=== PATIENT | female | born 1970 | race Caucasian/White ===

== ENCOUNTER 2019-12-31 08:06 | Emergency (ER) | payer BC, SELFPAY ==
--- NOTE | 2019-12-31 08:11 | ED.EYEPROB ---
HPI - Eye Problem General Chief complaint: Eye Problems Stated complaint: Dog scratch in eye Time Seen by Provider: 12/31/19 08:40 Source: patient and RN notes reviewed Mode of arrival: ambulatory Limitations: no limitations History of Present Illness HPI Narrative: 49-year-old female presents with concern for her dog scratching her right eye yesterday. She reports crusted drainage when she woke up this morning, the entire light sensitivity, discomfort, upper and lower lid swelling. She denies vision changes. Denies intervention. chief complaint: eye pain Related Data Home Medications Medication Instructions Recorded Confirmed aspirin 81 mg tablet,delayed 81 mg PO DAILY 01/18/19 12/31/19 release loratadine 10 mg tablet 10 mg PO DAILY 02/23/19 12/31/19 Allergies Allergy/AdvReac Type Severity Reaction Status Date / Time amoxicillin Allergy Severe IMMEDIATE Verified 12/31/19 08:16 ANAPHYLAXIS atorvastatin Allergy Unknown Muscle pain Verified 12/31/19 08:16 Penicillins Allergy Unknown Anaphylaxis Verified 12/31/19 08:16 Review of Systems Review of Systems: Narrative: CONSTITUTIONAL: Denies malaise, chills, sweats, or fever. EYES: Denies visual changes. Reports right eye light sensitivity, eyelid swelling, redness, or discharge. ENT: Denies rhinorrhea, congestion, sinus pain, otalgia or sore throat. CARDIOVASCULAR: Denies chest pain, palpitations RESPIRATORY: Denies cough or dyspnea. SKIN: Denies open skin, rash or itching. All systems reviewed & are unremarkable except as noted in HPI and below PMFSH Past Medical History Medical History (Updated 12/31/19 @ 08:53 by Alicia Martinez NP) Asthma Carpal tunnel syndrome Cholecystectomy planned HLD (hyperlipidemia) HTN (hypertension) RLS (restless legs syndrome) Thyroid disease Type 1 diabetes mellitus with hyperglycemia Surgical History Surgical History Delivery by section H/O tubal ligation Family History Family History Mother Family history of osteoporosis Patient's mother is in good health Cerebral aneurysm Sibling Hypertension Patient's sister is in good health Father Family history of cardiovascular disease Patient's father is in good health Other Family history of arthritis Family history of chronic obstructive pulmonary disease Family history of congestive heart failure Social History Social History (Updated 04/26/19 @ 15:11 by Nikky Paez MD) Smoking packs per day: 0.25 Smoking cigarettes per day: 5.0 Smoking status: Light tobacco smoker Tobacco type: cigarettes Alcohol intake: never 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 There is no relevant family history pertinent to the presenting complaint Exam Narrative: Exam Narrative: GENERAL: Well-appearing, well-nourished, and in no acute distress. HEAD: Normocephalic, atraumatic. EYES: PERRLA and EOMI. No nystagmus. Left eye sclera conjunctivae clear. Right eye sclera injected, mild upper and lower lid edema. Corneal abrasion noted on Benitez lamp exam, see note ENT: Nares clear. Mucous membranes moist. NECK: Supple. CHEST: No respiratory distress. Speaks in full sentences. HEART: Regular rate and rhythm. SKIN: Warm, dry, no open skin NEURO: Alert and oriented x3. PSYCH: Normal mood and affect Course Course Emergency Course: Patient is aware of diagnosis, understands and agrees to treatment plan. Anticipatory guidance given. Patient agrees to follow-up as directed and is aware of reasons to seek care at the emergency department. Portions of this record may have been created with voice recognition software Vital Signs Vital signs: Vital Signs Temperatu
[2019-12-31 08:23] VITALS: BP 158/97; PULSE 102; RESP 16; TEMP 36.7; O2SAT 99
== END 2019-12-31 08:56 | disposition home or self-care (01) ==
PROVIDERS: Emergency Provider Nurse Practitioner; PCP Internal Medicine
DX: S05.01XA Injury of conjunctiva and corneal abrasion without foreign body, right eye, initial encounter (principal); W54.8XXA Other contact with dog, initial encounter; F17.210 Nicotine dependence, cigarettes, uncomplicated; E78.5 Hyperlipidemia, unspecified; I10 Essential (primary) hypertension; G25.81 Restless legs syndrome; E10.9 Type 1 diabetes mellitus without complications; Z79.82 Long term (current) use of aspirin
CPT/HCPCS: 99213; A9270; G0463

== ENCOUNTER 2020-01-09 11:58 | Outpatient (CLI) | payer BC, SELFPAY ==
--- NOTE | ~2020-01-09 | XR_ITS ---
EXAMINATION: HAND-MIL ARTHRITIS 3+VIEWS DATE: 01/09/2020 12:20 INDICATION: Bilateral hand pain TECHNIQUE: Posteroanterior, lateral, and oblique views of the left and of the right hands as well as a ballcatchers view of both hands were obtained. COMPARISON: Right wrist radiograph dated 09/09/2017 FINDINGS: Bone alignment is normal at both hands and wrists. No fracture. Tiny heterotopic ossicle versus degen erative loose body near the tip of the right ulnar styloid process. Mild to moderate osteoarthritis a t the right third metacarpophalangeal joint. Mild osteoarthritis at the left third metacarpophalangea l joint, bilateral first interphalangeal joints and right second distal interphalangeal joint. Minima l osteoarthritis at several of the remaining predominantly distal interphalangeal joints. No erosions to suggest an inflammatory arthritis. Soft tissues are unremarkable. IMPRESSION: 1. Generally mild polyarticular osteoarthritis. The prominence at the third metacarpophalangeal joint s is somewhat atypical but can be seen in the setting of secondary osteoarthritis related to calcium pyrophosphate deposition (CPPD) disease. Reviewed, dictated and finalized at location A. RTMENT HEAD IMPRESSION: 1. Generally mild polyarticular osteoarthritis. The prominence at the third met acarpophalangeal joints is somewhat atypical but can be seen in the setting of secondary osteoarthritis related to calcium pyrophosphate deposition (CPPD) dis ease.
== END 2020-01-09 11:59 | disposition home or self-care (01) ==
PROVIDERS: PCP Internal Medicine; Visit Provider Nurse Practitioner
DX: M19.041 Primary osteoarthritis, right hand (principal); M19.042 Primary osteoarthritis, left hand
CPT/HCPCS: 73130

== ENCOUNTER 2020-12-20 09:29 | Outpatient (CLI) | payer BC, SELFPAY ==
--- NOTE | ~2020-12-20 | MM_ITS ---
EXAMINATION: MM screening tc BI w abigail HISTORY: Screening mammogram TECHNIQUE: Craniocaudal and mediolateral oblique 3-D tomosynthesis images were obtained and synthetic 2-D images were generated. CAD analysis was submitted and interpreted. COMPARISON: 09/08/2018, 10/03/2013 bilateral screening mammogram examinations BREAST PARENCHYMAL COMPOSITION: The breasts are heterogeneously dense, which may obscure small masses . FINDINGS: There is no evidence of suspicious mass, calcification, or architectural distortion to sugg est malignancy in either breast. There has been no suspicious interval change. IMPRESSION: 1. No mammographic evidence of malignancy. 2. Recommend routine screening mammography in one year. BI-RADS Category 1: Negative Reviewed, dictated and finalized at location A. MAKER
== END 2020-12-20 09:30 | disposition home or self-care (01) ==
LOC: ANHIMG 09:30
PROVIDERS: PCP Internal Medicine; Visit Provider Obstetrics & Gynecology
DX: Z12.31 Encounter for screening mammogram for malignant neoplasm of breast (principal)
CPT/HCPCS: 77063; 77067

== ENCOUNTER 2022-01-05 17:49 | Emergency (ER) | payer BC, SELFPAY ==
[2022-01-05 18:28] VITALS: BP 159/61; PULSE 119; RESP 18; TEMP 38.7; O2SAT 97
--- NOTE | 2022-01-05 20:37 | PC.NURSE ---
pt ambulatory to front end mechanic. verbalized that she cant wait any longer and is leaving.
== END 2022-01-05 21:06 | disposition left against medical advice (07) ==
LOC: ANHED 21:04
PROVIDERS: PCP Internal Medicine
DX: R03.0 Elevated blood-pressure reading, without diagnosis of hypertension (principal)
CPT/HCPCS: 99199

== ENCOUNTER 2022-01-06 12:24 | Outpatient (CLI) | payer BC, SELFPAY ==
--- NOTE | ~2022-01-06 | XR_ITS ---
XR chest 2V DATE: 01/06/2022 12:39 INDICATION: Cough TECHNIQUE: PA and lateral views COMPARISON: 09/18/2018 2 view chest FINDINGS: Normal heart size. No hilar or mediastinal enlargement. No pulmonary infiltrate or consolid ation, pleural effusion or pulmonary vascular congestion or pneumothorax. The lungs are mildly hyperi nflated. Osteopenia. Mild thoracolumbar dextroscoliosis. Status post cholecystectomy. IMPRESSION: No active cardiopulmonary disease Reviewed, dictated and finalized at location B. ALING FURNACE TENDER
== END 2022-01-06 12:25 | disposition home or self-care (01) ==
PROVIDERS: PCP Internal Medicine; Visit Provider Nurse Practitioner
DX: R05.9 Cough, unspecified (principal)
CPT/HCPCS: 71046

== ENCOUNTER 2022-01-07 16:05 | Emergency (ER) | payer BC, SELFPAY ==
[2022-01-07 16:19] VITALS: BP 144/75; PULSE 100; RESP 16; TEMP 36.5; O2SAT 98
--- NOTE | 2022-01-07 18:00 | ED.URI ---
HPI - URI/Sore Throat General Chief Complaint: Upper Respiratory Infection Stated Complaint: sore throat/ear pain Time Seen by Provider: 01/07/22 18:00 Source: patient, RN notes reviewed and old records reviewed Mode of arrival: ambulatory Limitations: no limitations History of Present Illness HPI Narrative: 51 year old female who presents to [facility] care with complaints of sore throat and right ear pain and hoarseness for the past 2 days, Patient reports that she had a chest xray done yesterday which was negative and she was diagnosed iwith influenza A at PCP on Wednesday. Patient reports that her right ear pain is 7/10, and throat is 9/10.Patient has been taking Ibuprofen for her discomfort. MD elicited complaint: cough, sore throat, rhinorrhea, nasal congestion and other (EAR PAIN RIGHT) Pertinent past history: other (diagnosed with flu on Wednesday) Onset (ago): day(s) (2) Pain scale (0-10): 9 Treatments prior to arrival: ibuprofen Related Data Home Medications Medication Instructions Recorded Confirmed aspirin 81 mg tablet,delayed 81 mg PO DAILY 01/18/19 12/18/21 release (Adult Aspirin Regimen) loratadine 10 mg tablet (Claritin) 10 mg PO DAILY 02/23/19 12/18/21 blood-glucose sensor (Guardian 12/16/21 12/18/21 Sensor 3 device) Allergies Allergy/AdvReac Type Severity Reaction Status Date / Time amoxicillin Allergy Severe IMMEDIATE Verified 01/07/22 16:27 ANAPHYLAXIS Penicillins Allergy Unknown Anaphylaxis Verified 01/07/22 16:27 Review of Systems Review of Systems: CONSTITUTIONAL:Reports malaise, chills, sweats, or fever. EYES: Denies visual changes, redness, or discharge. ENT: Reports rhinorrhea, congestion, sinus pain,right otalgia and sore throat. CARDIOVASCULAR: Denies chest pain, palpitations, or edema. RESPIRATORY: Reports cough.? Denies dyspnea. GASTROINTESTINAL: Denies abdominal pain, nausea, vomiting, diarrhea SKIN: Denies rash or itching. MUSCULOSKELETAL: reports myalgia. NEUROLOGIC: Denies headache. All systems reviewed & are unremarkable except as noted in HPI and below PMFSH Past Medical History Medical History 70 percent neuromuscular blockade measured by train of four peripheral nerve stimulation monitoring Asthma Carpal tunnel syndrome Depression H/O calcium pyrophosphate deposition disease (CPPD) Hip pain, left Hirsutism HLD (hyperlipidemia) HTN (hypertension) Hypothyroidism Menopause Neuropathy RLS (restless legs syndrome) Type 1 diabetes mellitus with hyperglycemia Surgical History Surgical History Delivery by section H/O tubal ligation Family History Family History Mother , July 14 2020 Family history of osteoporosis Patient's mother is in good health Cerebral aneurysm Sibling Hypertension Patient's sister is in good health Father Family history of cardiovascular disease Tongue cancer Other Family history of arthritis Family history of chronic obstructive pulmonary disease Family history of congestive heart failure Social History Social History (Updated 12/18/21 @ 14:15 by Alis Edmondson CMA) Social History: caffeine- 6 cups daily Smoking packs per day: 0.5 Smoking cigarettes per day: 10.0 Years smoked: 20 Smoking pack-years: 10.00 Smoking status: Current every day smoker Tobacco type: cigarettes Alcohol intake: never Substance use: never Lack of Transportation: No Lack of Food: Never True Current Housing: I Have Housing Concerned About Future Housing: No Difficulty Paying Gas/Electric Bills: No Difficulty Paying for Meds: No Currently Unemployed: No Education: Don't Know Difficulty w/ Childcare or Family Care: No 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
== END 2022-01-07 18:14 | disposition home or self-care (01) ==
PROVIDERS: Emergency Provider Registered Nurse; PCP Internal Medicine
DX: J10.1 Influenza due to other identified influenza virus with other respiratory manifestations (principal); H60.91 Unspecified otitis externa, right ear; F17.210 Nicotine dependence, cigarettes, uncomplicated; J45.909 Unspecified asthma, uncomplicated; E78.5 Hyperlipidemia, unspecified; I10 Essential (primary) hypertension; E03.9 Hypothyroidism, unspecified; G25.81 Restless legs syndrome; E10.9 Type 1 diabetes mellitus without complications; Z79.82 Long term (current) use of aspirin
CPT/HCPCS: 87081; 87880; 99213; G0463

== ENCOUNTER 2022-04-15 15:41 | Outpatient (CLI) | payer BC, SELFPAY ==
[2022-04-15 17:20] LABS: Free T4 Free Thyroxine 1.55 ng/mL (0.78-2.19); Vitamin D 25 Hydroxy 36.4 ng/mL
[2022-04-15 17:38] LABS: Creatinine Urine 21.3 mg/dL
[2022-04-15 17:39] LABS: MALB Creatinine Ratio 29.6 mg/g (0-30); Microalbumin Urine Random 6.3 mg/L (0-16.7)
[2022-04-15 20:44] LABS: Anion Gap 7 mmol/L (8-16); Blood Urea Nitrogen 14 mg/dL (7-17); Calcium 8.6 mg/dL (8.4-10.2); Carbon Dioxide 24 mmol/L (22-30); Chloride 107 mmol/L (98-107); Estimated Glomerular Filt Rate > 60; Glucose 139 mg/dL (65-110); Magnesium 1.7 mg/dL (1.6-2.3); Potassium 3.8 mmol/L (3.4-5.0); Sodium 138 mmol/L (137-145)
[2022-04-15 20:55] LABS: LDL Cholesterol Direct 66 mg/dL
[2022-04-15 21:15] LABS: Thyroid Stimulating Hormone 0.419 uIU/mL (0.465-4.680)
== END 2022-04-15 15:42 | disposition home or self-care (01) ==
LOC: ANHWCLAB 15:43
PROVIDERS: Visit Provider Internal Medicine Endocrinology, Diabetes & Metabolism
DX: E03.9 Hypothyroidism, unspecified (principal); E10.65 Type 1 diabetes mellitus with hyperglycemia; E78.5 Hyperlipidemia, unspecified; Z71.3 Dietary counseling and surveillance; R79.89 Other specified abnormal findings of blood chemistry
CPT/HCPCS: 36415; 80048; 82043; 82306; 83721; 83735; 84439; 84443

== ENCOUNTER 2023-04-09 08:27 | Outpatient (CLI) | payer BC, SELFPAY ==
--- NOTE | ~2023-04-09 | XR_ITS ---
Left Knee Technique: AP, lateral, and sunrise views were obtained. Clinical History: Pain Findings: No fracture or dislocation is seen. Osseous alignment is anatomic. Minimal patellar spurrin g noted. Soft tissues are unremarkable. No joint effusion is seen. Impression: Minimal degenerative spurring. Reviewed, dictated and finalized at [facility]. STILE ATTENDANT Impression: Minimal degenerative spurring.
== END 2023-04-09 08:28 ==
PROVIDERS: PCP Nurse Practitioner; Visit Provider Nurse Practitioner
DX: M25.562 Pain in left knee (principal)
CPT/HCPCS: 73564

== ENCOUNTER 2023-05-19 15:18 | Outpatient (CLI) | payer BC, SELFPAY ==
--- NOTE | ~2023-05-19 | MM_ITS ---
EXAMINATION: MM screening tc BI w abigail HISTORY: Screening mammogram TECHNIQUE: Craniocaudal and mediolateral oblique 3-D tomosynthesis images were obtained and synthetic 2-D images were generated. CAD analysis was submitted and interpreted. COMPARISON: 12/20/2020, 09/08/2018 bilateral screening mammogram examinations BREAST PARENCHYMAL COMPOSITION: The breasts are heterogeneously dense, which may obscure small masses . FINDINGS: There is no evidence of suspicious mass, calcification, or architectural distortion to sugg est malignancy in either breast. There has been no suspicious interval change. IMPRESSION: 1. No mammographic evidence of malignancy. 2. Recommend routine screening mammography in one year. BI-RADS Category 1: Negative Reviewed, dictated and finalized at location A.
== END 2023-05-19 15:19 | disposition home or self-care (01) ==
PROVIDERS: PCP Nurse Practitioner; Visit Provider Obstetrics & Gynecology
DX: Z12.31 Encounter for screening mammogram for malignant neoplasm of breast (principal)
CPT/HCPCS: 77063; 77067

== ENCOUNTER 2025-01-08 13:36 | Inpatient (IN) | payer BC, SELFPAY ==
--- NOTE | ~2025-01-08 | XR_ITS ---
EXAMINATION: XR surgery orthopedic DATE: 01/09/2025 11:17 INDICATION: Intraoperative evaluation during right hip intertrochanteric nailing TECHNIQUE: 4 fluoroscopic images of the right hip and proximal femur were obtained procedure performed by Dr. Abernathy. Radiologist was not present for the imaging or procedure. The amount of fluoroscopy time used during this procedure was 0.6 minutes. The dose area product was 1.299 Gycm^2. COMPARISON: Radiographs dated 01/08/2025 FINDINGS: Images demonstrate open reduction and internal fixation of the intertrochanteric fracture of the proximal with antegrade intramedullary jaci with femoral neck dynamic compression screw and distal interlocking screw fixation. Alignment remains near-anatomic. No new fractures identified. Normal right hip joint space. Expected small amount of postoperative lucent soft tissue gas in the surrounding soft tissues. IMPRESSION: 1. Near-anatomic alignment post internal fixation of an intertrochanteric fracture of the proximal right femur. See procedure note for further detail.. Reviewed, dictated and finalized at location A. TIONAL REHABILITATION TECHNICIAN IMPRESSION: 1. Near-anatomic alignment post internal fixation of an intertrochanteric fract ure of the proximal right femur. See procedure note for further detail..
--- NOTE | ~2025-01-08 | XR_ITS ---
EXAMINATION: XR hip RT 2V w AP pelvis, 01/08/2025 15:17 LOG MANAGER HISTORY: GLF, pain COMPARISON: No comparisons available. Findings: Nondisplaced right intertrochanteric fracture. No dislocation. No significant degenerative changes. Soft tissue swelling. Impression: Right intertrochanteric fracture Reviewed, dictated and finalized at location P. MANAGER Impression: Right intertrochanteric fracture
[2025-01-08 13:48] VITALS: BP 148/54; PULSE 91; RESP 16; TEMP 36.6; O2SAT 97
[2025-01-08] MEDS: MORPHINE SULFATE (*CRX) 4 MG/ML INJ 2 MG IV PUSH ×3 (14:24→20:02)
--- OUTSIDE RECORDS SUMMARY | 2025-01-08 15:17 | XMS_ITS | Clinical Summary ---
Author Organization [facility] Address [address] [place] [address] Care Team Providers Care Analytical Chemist Name Role Phone Brandon Begum DO Primary Care Provider [phone] Source Comments [facility],non-owned Affiliates and Associated Physician Practices is amultiple site organization consisting of ambulatory clinics and hospital sitesin [place], [place], [place] and [place]. This disclosure is being madepursuant to the Care Everywhere program and may not contain all information available regarding this patient. Last updated 17.[facility] Allergies Active Allergy Reactions Criticality Noted Date Comments Penicillins 02/28/2016 Medications * Be aware that medications may not be up to date on this document. Alwaysverify current medications with the patient. insulin glulisine (APIDRA) vial Inject subcutaneously 2 times daily,before breakfast and supper Active insulin glargine (LANTUS) vial Inject subcutaneously at bedtime Active levothyroxine (SYNTHROID) 175 MCG tablet Take 175 mcg by mouth daily before breakfast Active aspirin EC (ECOTRIN) 81 MG tablet Active fluticasone propionate (FLONASE) 50 MCG/ACT nasal spray Active omeprazole (PRILOSEC) 20 MG capsule Active blood glucose (PRECISION QID TEST) test strip Use to test blood sugars 4 times a day (glucocard expression meter) Active amLODIPine (NORVASC) 10 MG tablet Take 10 mg by mouth once daily Active atorvastatin (LIPITOR) 10 MG tablet Take 10 mg by mouth at bedtime Active cetirizine (ZYRTEC ALLERGY) 10 MG gel capsule Take 10 mg by mouth once daily Active ofloxacin (FLOXIN) 0.3 % otic solution Instill 5 (five) drops into right ear 2 times daily 5 mL Active Social History Tobacco Use Types Packs/Day Years Used Date Smoking Tobacco: Every Day Cigarettes Smokeless Tobacco: Never Tobacco Cessation:Ready to Q uit: No; Counseling Given: Yes PHQ-2 Answer Date Recorded PHQ2 TOTAL SCORE 0 08/05/2020 Comments No Sex and Gender Information Value Date Recorded Sex Assigned at Not on file Legal Sex Female 5:37 AM BUSINESS 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 Gender Identity Not on file Sexual Orientation Not on file Last Filed Vital Signs Vital Sign Reading Time Taken Comments Blood Pressure 120/64 08/05/2020 3:39 PM CDT Pulse 91 08/05/2020 3:39 PM CDT Temperature 36.6 C (97.9 F) 08/05/2020 3:39 PM CDT Respiratory Rate 18 08/05/2020 3:39 PM CDT Oxygen Saturation 97% 08/05/2020 3:39 PM CDT Inhaled Oxygen Concentration - - Weight 68.9 kg (152 lb) 08/05/2020 3:39 PM CDT Height 157.5 cm (5' 2) 08/05/2020 3:39 PM CDT Body Mass Index 27.8 08/05/2020 3:39 PM CDT Plan of Treatment Health Maintenance Due Date Last Done Comments COLOGUARD (AGES 45-75) - COL ON CA SCREENING 1970 COLON MONITORING 1970 COLONOSCOPY - COLON CA SCREENING 1970 CT COLONOGRAPHY - COLON CA SCREENING 1970 Colorectal Cancer Screening 1970 FIT - COLON CA SCREENING 1970 FLEX SIG - COLON CA SCREENING 1970 MAMMOGRAM 1970 HIV SCREENING 1985 HEPATITIS C SCREENING 07/07/1988 DTAP/TDAP/TD VACCINES (1 - Tdap) 1989 HEPATITIS B VACCINE (1 of 3 - 19+ 3-dose series) 1989 PNEUMOCOCCAL VACCINE 50+ (1 of 2 - PCV) 1989 Cervical Cancer Screening 07/13/1991 PAP SMEAR 07/13/1991 PAP with HPV 2000 ZOSTER VACCINE (1 of 2) 2020 SCREENING FOR DIABETES 08/05/2020 DEPRESSION SCREENING 02/09/2024 COVID-19 VACCINE ( - 2024-2 6 season) 2024 INFLUENZA VACCINE (#1) 2024 HIB VACCINE Aged Out No longer eligi ble based on patient's age to complete this topic HPV VACCINE Aged Out No longer eligi ble based on patient's age to complete this topic MENINGOCOCCAL (Group B) VACC INE SHARED DECISION-MAKING Aged Out No longer eligibl e based on patient's age to complete this topic MENINGOCOCCAL GROUPS A/C/Y/W VACCINE Aged Out No longer eligible b ased on patient's age to complete this topic Insurance [facility] Care Teams Analytical Chemist Relationship Specialty Start Date End Date Brandon Begum DO PCP - General Internal Medicine 02/28/16
--- OUTSIDE RECORDS SUMMARY | 2025-01-08 15:17 | XMS_ITS | Clinical Summary ---
Author Organization [facility] Address Formerly [address] [place] [address] Care Team Providers Care Ruby On Rails Engineer Name Role Phone None, Provider MD Primary Care Provider Unavaila ble Allergies Active Allergy Reactions Criticality Noted Date Comments Penicillins Shortness of Breath High 07/27/2024 Medications ezetimibe (ZETIA) 10 MG tablet Take 1 tablet (10 mg total) by mouth daily. Active hydroxychloroq uine (PLAQUENIL) 200 MG tablet Take 1 tablet (200 mg total) by mouth daily. Active lisinopril (PRINIVIL) 40 MG tablet Take 1 tablet (40 mg total) by mouth daily. Active levothyroxine (SYNTHROID) 175 MCG tablet Take 1 tablet (175 mcg total) by mouth every morning. Active folic acid (FOLVITE) 1 MG tablet Take 1 tablet (1 mg total) by mouth daily. Active methotrexate (TREXALL) 2.5 MG tablet Take 8 tablets (20 mg total) by mouth once a week. On Wednesday Active Apremilast (OTEZLA) 30 MG Tab Take 1 tablet by mouth 2 (two) times a day. Active celecoxib (CELEBREX) 200 MG capsule Take 1 capsule (200 mg total) by mouth 2 (two) times daily. Active aspirin EC 81 MG tablet Take 1 tablet (81 mg total) by mouth daily. Active amLODIPine (NORVASC) 10 MG tablet Take 1 tablet (10 mg total) by mouth nightly. Active vitamin D3, cholecalcifero l, 125 mcg capsule Take 1 capsule (125 mcg total) by mouth nightly. Active probiotic (FLORAJEN3) Cap capsule Take 1 capsule by mouth nightly. Active lansoprazole (PREVACID) 15 MG capsule Take 1 capsule (15 mg total) by mouth daily. Active insulin lispro, 1 Unit Dial, (HUMALOG) 100 UNIT/ML injection (PEN) Inject into the skin see administration instructions. Active insulin glargine (LANTUS) 100 UNIT/ML injection (PEN) Inject 6 Units into the skin 2 (two) times a day. Active HYDROcodone-ac etaminophen (NORCO) 7.5-325 MG tabletIndicati ons:Acute Pain < 7 Day Supply Take 1 tablet by mouth every 6 (six) hours as needed. Indications: Acute Pain < 7 Day Supply 15 tablet Active Social History Tobacco Use Types Packs/Day Years Used Date Smoking Tobacco: Every Day Cigarettes Smokeless Tobacco: Never Tobacco Cessation:Ready to Q uit: Not Asked; Counseling Given: Not Answered Alcohol Use Standard Drinks/Week Comments Never 0 (1 standard drink = 0.6 oz pur e alcohol) Comments No Sex and Gender Information Value Date Recorded Sex Assigned at Not on file Legal Sex Female 8:08 PM CDT Gender Identity Not on file Sexual Orientation Not on file Last Filed Vital Signs Vital Sign Reading Time Taken Comments Blood Pressure 139/68 08/03/2024 11:20 AM CDT Pulse 72 08/03/2024 11:20 AM CDT Temperature 37 C (98.6 F) 08/03/2024 11:20 AM CDT Respiratory Rate 16 08/03/2024 11:2 0 AM CDT Oxygen Saturation 97% 08/03/2024 11: 20 AM CDT Inhaled Oxygen Concentration - - Weight 59.4 kg (130 lb 15.3 oz) 08/03/2024 7:30 AM CDT Height 157.5 cm (5' 2) 08/03/2024 7:30 AM CDT Body Mass Index 23.95 08/03/2024 7:30 AM CDT Plan of Treatment Health Maintenance Due Date Last Done Comments Colorectal Cancer Screening Colonoscopy (10 Years) 1970 Annual Physical 1973 Hepatitis C 1988 Hepatitis B Vaccines (1 of 3 - 19+ 3-dose series) 1989 Cervical Cancer Screening Pap with HPV Testing (Age 30 to 64) Every 5 Years 2000 Mammogram Screening 2010 Zoster Vaccines (1 of 2) 2020 Pneumococcal Vaccine: 50+ Years (3 of 3 - PCV20 or PCV21) 11/11/2023 11/10/2018, 10/18/2015 COVID-19 Vaccine (3 - season) 2024 02/11/2021, 04/12/2020 Influenza Adult (#1) 2024 12/11/2023, 12/12/2022, 02/19/2022, Additional history exists Cervical Cancer Screening Pap Smear (Age 30 to 64) Every 3 Years 03/16/2027 03/16/2024 Cervical Cancer Screening with HPV 03/16/2027 DTaP, Tdap and Td Vaccines (2 - Td or Tdap) 10/09/2031 10/08/2021 Hepatitis A Vaccines Aged Out No long er eligible based on patient's age to complete this topic Meningococcal B Vaccine Aged Out No l onger eligible based on patient's age to complete this topic Meningococcal Vaccine Aged Out No rome aditya eligible based on patient's age to complete this topic RSV Immunizations Under 20 Months Aged Out No longer eligible based on patient's age to complete this topic Insurance Care Teams Ruby On Rails Engineer Relationship Specialty Start Date End Date None, Provider, PCP - General UNKNOWN PHYSICIAN SPECIALTY 07/31/24
--- OUTSIDE RECORDS SUMMARY | 2025-01-08 15:17 | XMS_ITS | Clinical Summary ---
Author Organization [facility] Address [address] [place] [address] Care Team Providers Care Automatic Pinsetter Adjuster Name Role Phone Brandon Begum DO Primary Care Provider [phone] Brandon Begum DO Unavailable [phone] Kolby Braga HYDRAULIC DESIGN ENGINEER Unavailable [phone] Allergies Active Allergy Reactions Criticality Noted Date Comments Atorvastatin Joint pain High 01/28/2023 Suspected in drug-induced lupus Penicillins Anaphylaxis,Chest tightness,Chills,Flushin g (skin),Hives,Palpitation s,Rash,Redness,Shortness of breath High 12/13/2014 Medications aspirin (ASPIR-81) 81 mg tablet Active clobetasol (TEMOVATE) 0.05 % cream 016 Active insulin glargine (LANTUS) 100 unit/mL injectionIndicat ions:type 1 diabetes mellitus Inject 8 Units under the skin every 12 (twelve) hours Active levothyroxine (LEVO-T) 175 mcg tablet Active omeprazole (PriLOSEC) 40 mg capsuleIndicatio ns:GERD Take 1 capsule (40 mg total) by mouth daily Active CETIRIZINE HCL (ZYRTEC ORAL) Active blood glucose diagnostic strip Use to test blood sugars 4 times a day (glucocard expression meter) Active PROAIR HFA 90 mcg/actuation inhaler 018 Active HUMALOG U-100 INSULIN 100 unit/mL injection daily as needed 018 Active insulin syringe-needle U-100 1/2 mL 31 gauge x 15/64 syringe 018 Active INSULIN SYRINGE 0.5 mL 29 gauge x 1/2 syringe 018 Active amLODIPine (NORVASC) 10 mg tablet Take 1 tablet (10 mg total) by mouth daily 023 Active lisinopriL (PRINIVIL,ZESTRI L) 40 mg tablet Take 1 tablet (40 mg total) by mouth daily 023 Active Baqsimi 3 mg/actuation spray,non-aeroso l SPRAY THE CONTENTS OF 1 DEVICE INTRANASALLY ONCE; MAY REPEAT WITH OTHER DEVICE IN 15 MINUTES IF NO RESPONSE 023 Active Dexcom G6 Sensor device 023 Active estradioL (ESTRACE) 1 mg tablet Take 1 tablet (1 mg total) by mouth daily 024 Active progesterone (PROMETRIUM) 100 mg capsule Take 1 capsule (100 mg total) by mouth daily 024 Active blood-glucose sensor (Dexcom G7 Sensor) device Active HYDROcodone-acet aminophen (NORCO) 7.5-325 mg per tablet Take 1 tablet by mouth every 6 (six) hours as needed 025 Active colestipoL (COLESTID) 1 gram tabletIndication s:Diarrhea due to malabsorption Take 1 tablet (1 g total) by mouth 2 (two) times a day 60 tablet 5 025 2024 Active ezetimibe (ZETIA) 10 mg tablet 025 Active pravastatin (PRAVACHOL) 10 mg tablet TAKE 1/2 (ONE-HALF) TABLET BY MOUTH ONCE DAILY AT BEDTIME 025 Active diclofenac sodium (VOLTAREN) 1 % gel Apply 2 g topically 3 (three) times a day Apply to arthritis joints PRN 50 g 2 025 Active folic acid (FOLVITE) 1 mg tablet Take 1 tablet by mouth once daily 90 tablet 1 025 Active hydroxychloroqui ne (PLAQUENIL) 200 mg tabletIndication s:Positive STEPHENIE (antinuclear antibody) TAKE 1 & 1/2 (ONE & ONE-HALF) TABLETS BY MOUTH ONCE DAILY 135 tablet 025 Active celecoxib (CeleBREX) 200 mg capsule TAKE 1 CAPSULE BY MOUTH TWICE DAILY NEEDED FOR PAIN 30 capsule Active apremilast (Otezla) 30 mg tabletIndication s:Psoriasis Take 1 tablet (30 mg total) by mouth 2 (two) times a day 180 tablet 1 Active methotrexate 2.5 mg tabletIndication s:autoimmune disease Take 8 tablets (20 mg total) by mouth once a week 32 tablet 3 025 2025 Active celecoxib (CeleBREX) 200 mg capsule Take 1 capsule (200 mg total) by mouth 2 (two) times a day as needed for pain 30 capsule 3 025 2024 Discontinued Otezla 30 mg tabletIndication s:Psoriasis TAKE 1 TABLET BY MOUTH 2 TIMES A DAY 180 tablet 1 025 2024 Discontinued(R luis albertoer) ixekizumab (Taltz Autoinjector) auto-injectorInd ications:Psoriat ic Arthritis Inject 2 mL (160 mg total) under the skin once for 1 dose 2 mL 025 2024 Discontinued ixekizumab (Taltz Autoinjector) auto-injectorInd ications:Psoriat ic Arthritis Inject 1 mL (80 mg total) under the skin every 4 (four) weeks 3 mL 1 025 2024 Discontinued Active Problems Problem Noted Date Diagnosed Date Drug-induced systemic lupus erythematosus 2023 Tobacco use 06/24/2023 Arthralgia 01/07/2023 Ventricular bigeminy 01/07/2023 Other fatigue 01/07/2023 Positive STEPHENIE (antinuclear antibody) 01/07/2023 Rash and nonspecific skin eruption 01/07/2023 Type 1 diabetes mellitus with hypoglycemia and w ithout coma 11/05/2016 Assessment & Plan (11/05/2016 2:46 PM CDT): Prevention and treatment of hypoglycemia were discussed Pa has glucagon emergency kit at home and family knows how to use it. Options of an insulin pump and DEXCOM continuous glucose monitoring discussed. Urinary tract infection 10/09/2014 Type 1 diabetes mellitus with hyperglycemia 06/08 Overview (05/15/2016): DMI WO CMP UNCNTRLD Assessment & Plan (12/04/2016 8:33 AM CDT): T1DM with poor hypoglycemia awareness preventing optimal glycemic control. Reviewed concept of CGM and insulin pump therapy. Would likely be able to achieve improved control with confidence of having CGM data available. Would additionally be able to be more precise with basal rates. Provided with information on CGM and pump therapy. Will contact pump reps. In meantime she is to count carbs in preparation. BG goals reviewed. Provided with education material and resources for carb counting and label reading. More than 50% of time spent on DM and pump/CGM education = 25 minutes of 40 minutes. Assessment & Plan (11/05/2016 2:46 PM CDT): .Hba1c was 8.8 today, indicating suboptimal DM control 1800 calorie, consistent carb diet recommended 30 min daily exercise, combining both aerobic and resistance exercise is strongly recommended and needed as part of diabetes management plan. The need to monitor blood glucose before meals and bedtime was discussed. Take prandial insulin before meals based on carb intake and blood glucose readings. : Take one unit per 15 grams of carbs ( trying not to eat more than 45-60 grams per meal ) Add one unit per ever 50 BG over 150. Lower Lantus to 6 units every 12 hours , am and bedtime Fax log sugars sheets every week Encounters Date Type Department Care Team Description 12/27/2024 Telephone [facility] [address] [place] [phone] Michelle Cardona RPh Prior Auth 12/26/2024 3:36 PM ELECTRICAL MECHANIC - 12/26/2024 11:59 PM ELECTRICAL MECHANIC Hospital Encounter [facility] [address] [place] [address] Psoriasis Discharge Disposition: Discharge to home or self care 12/26/2024 3:30 PM ELECTRICAL MECHANIC Lab [facility] Medicine Infectious Diseases [address] [place] [phone] 12/26/2024 3:00 PM ELECTRICAL MECHANIC Office Visit [facility] Medicine Rheumatology [address] [place] [phone] Prem Chapman MD Psoriatic arthritis (HCC) (Primary Dx); Psoriasis; Positive STEPHENIE (antinuclear antibody); Trigger index finger of right hand; High risk medication use; Tobacco use 10/15/2024 Telephone [facility] [address] [place] [address] Jacqui Jenkins RPh 10/13/2024 Orders Only [facility] Medicine Rheumatology [address] [place] [address] [place] [address] Prem Chapman MD from Last 3 Months Surgical History Surgery Date Site/Laterality Comments SECTION section TUBAL LIGATION 2005 Bilateral tubal ligation CARPAL TUNNEL RELEASE Carpal tunnel release CHOLECYSTECTOMY SINUS SURGERY 07/09/2024 - 08/07/2024 SECTION 1997 Medical History Medical History Date Comments Diabetes mellitus Diabetes Diabetes mellitus type I GERD (gastroesophageal reflux disease) 08/24 Thyroid disease 1997 Family History Medical History Relation Name Comments Heart attack Father Dad Heart disease Father Dad Hypertension Mother Mom Inflammatory bowel disease Mother Mom Stroke Mother Mom Cancer Mother's Brother Ketan Cancer Mother's Sister 1 Abdoul Diabetes Mother's Sister 2 Nancy Other Other No family histo ry of Diabetes mellitus; Allergy (severe) Son Cornelius Asthma Son Cornelius Relation Name Status Comments Father Dad Alive Mother Mom Mother's Brother Ketan Alive Mother's Sister 1 Abdoul Alive Mother's Sister 2 Nancy Alive Other Son Cornelius Alive Social History Tobacco Use Types Packs/Day Years Used Date Smoking Tobacco: Every Day Cigarettes Smokeless Tobacco: Current Tobacco Cessation:Ready to Q uit: Yes; Counseling Given: No Alcohol Use Standard Drinks/Week Comments No 0 (1 standard drink = 0.6 oz pur e alcohol) Social Connection and Isolation Panel Answer Date Recorded In a typical week, how many times do you talk on the phone with family, friends, or neighbors? More than three times a week 07/07/2023 How often do you get togethe r with friends or relatives? More than three times a week 07/07/2023 How often do you attend [facility] or restoration services? Never 07/07/2023 Do you belong to any clubs o r organizations such as oriental orthodox groups, unions, fraternal or athletic groups, or school groups? Patient declined 07/07/2023 How often do you attend meet ings of the clubs or organizations you belong to? Not asked 07/07/2023 Are you , , di vorced, , never , or living with a partner? 07/07/2023 AUDIT-C Answer Date Recorded Q1: How often do you have a drink containing alc ohol? Never 08/04/2024 Average Number of Drinks Not on file 025 Frequency of Binge Drinking Not on file 07/10 Overall Financial Resource Strain (CARDIA) Answe r Date Recorded How hard is it for you to pa y for the very basics like food, housing, medical care, and heating? Not hard at all 07/07/2023 PHQ-2 Answer Date Recorded Patient Health Questionnaire-2 Score 1 07/07/2023 [facility] - Occupational Stress Questionnaire Answer Date Recorded Do you feel stress - tense, restless, nervous, or anxious, or unable to sleep at night because your mind is troubled all the time - these days? To some extent 07/07/2023 Exercise Vital Sign Answer Date Recorde d On average, how many days pe r week do you engage in moderate to strenuous exercise (like a brisk walk)? 7 days 07/07/2023 On average, how many minutes do you engage in exercise at this level? 100 min 07/07/2023 Hunger Vital Sign Answer Date Recorded Within the past 12 months, y ou worried that your food would run out before you got the money to buy more. Never true 07/07/19 24 Within the past 12 months, t he food you bought just didn't last and you didn't have money to get more. Never true 07/07/2023 PRAPARE - Transportation Answer Date Re corded In the past 12 months, has l ack of transportation kept you from medical appointments or from getting medications? No 06/09 In the past 12 months, has l ack of transportation kept you from meetings, work, or from getting things needed for daily living? No 07/07/2023 Housing Stability Vital Sign Answer Karson e Recorded In the last 12 months, was t here a time when you were not able to pay the mortgage or rent on time? No 01/06/2023 In the last 12 months, how many places have you lived? 1 01/06/2023 In the last 12 months, was t here a time when you did not have a steady place to sleep or slept in a half-way (including now)? No 01/06/2023 Comments Unknown Sex and Gender Information Value Date Recorded Sex Assigned at Not on file Legal Sex Female 6:53 PM ELECTRICAL MECHANIC Gender Identity Not on file Sexual Orientation Not on file Last Filed Vital Signs Vital Sign Reading Time Taken Comments Blood Pressure 135/73 12/26/2024 2:48 PM ELECTRICAL MECHANIC Pulse 95 12/26/2024 2:48 PM ELECTRICAL MECHANIC Temperature 36.9 C (98.5 F) 12/26/2024 2:48 PM ELECTRICAL MECHANIC Respiratory Rate 16 12/03/2016 2:48 PM CDT Oxygen Saturation 97% 12/26/2024 2:48 PM ELECTRICAL MECHANIC Inhaled Oxygen Concentration - - Weight 59.1 kg (130 lb 3.2 oz) 12/26/2024 2:48 P M ELECTRICAL MECHANIC Height 157.5 cm (5' 2.01) 12/26/2024 2:48 PM CS T Body Mass Index 23.81 12/26/2024 2:48 PM ELECTRICAL MECHANIC Plan of Treatment Health Maintenance Due Date Last Done Comments Albumin Creatinine Ratio, Urine 1970 Breast Cancer Screening-Mammogram 1970 Cervical Cancer Screening 1970 Colon Cancer Screening-Colonoscopy 1970 Foot Exam 1970 TSH Level 1970 Dilated Eye Exam 1980 Lipid Panel 1980 Hepatitis B Screening 1988 Regular Well Visit/Exam 18-64 1988 Zoster Vaccine (1 of 2) 1989 Hemoglobin A1C 05/05/2017 11/05/2016 Pneumococcal vaccine <65 (3 of 3 - PCV20 or PCV21) 11/11/2023 11/10/2018, 10/18/2015 Depression Screening 07/06/2024 07/07/2023, 01/06/2023, 12/03/2016, Additional history exists Covid-19 Vaccine (3 - 2024-2 6 season) 2024 02/11/2021, 04/12/2020 Influenza Vaccine (#1) 2024 3, 02/19/2022, 01/19/2021, Additional history exists eGFR 12/26/2025 12/26/2024, 09/08, 06/20/2024, Additional history exists DTaP/Tdap/Td Vaccine (2 - Td or Tdap) 10/09/2031 10/08/2021 Hepatitis C Screening Completed 09/30/2023 Procedures Procedure Name Priority Date/Time Associated Diagnosis Comments EGFR Routine 12/26/2024 3:36 PM ELECTRICAL MECHANIC Psoriasis DIFFERENTIAL AUTO Routine 12/26/2024 3:3 6 PM ELECTRICAL MECHANIC Psoriasis ERYTHROCYTE SEDIMENTATION RATE Routine 12/26/2024 3:36 PM ELECTRICAL MECHANIC Psoriasis COMPREHENSIVE METABOLIC PANEL Routine 12/26/2024 3:36 PM ELECTRICAL MECHANIC Psoriasis CBC WITH AUTO DIFFERENTIAL Routine 12/26/2024 3:36 PM ELECTRICAL MECHANIC Psoriasis CRP (ACUTE PHASE) Routine 12/26/2024 3:3 6 PM ELECTRICAL MECHANIC Psoriasis HEPATITIS C ANTIBODY Routine 09/30/2023 1:21 PM CDT Drug-induced systemic lupus erythematosus, unspecified organ involvement status Type 1 diabetes mellitus without complication (HCC) POCT GLYCOSYLATED HEMOGLOBIN (HGB A1C), HOME MONITOR Routine 11/05/2016 2:55 PM CDT Type 1 diabetes mellitus with hyperglycemia (HCC) from Last 3 Months or Most Recently Relevant to Health Maintenance Results * eGFR (12/26/2024 3:36 PM ELECTRICAL MECHANIC) eGFR >90 >=60 mL/min/1. 73 m2 Comment: Interpretive Data Reference Interval Normal >/= 90 mL/min/1.73m2 Mildly decreased* 60 - 89 mL/min/1.73m2 Mildly to moderately decreased 45 - 59 mL/min/1.73m2 Moderately to severely decreased 30 - 44 mL/min/1.73m2 Severely decreased 15 - 29 mL/min/1.73m2 Kidney Failure < 15 mL/min/1.73m2 *Relative to young adult level Estimated glomerular filtration rate is determined by the 2020 CKD-EPI equation recommended by the National Kidney Foundation (A Unifying Approach to GFR Estimation: Recommendations of the NKF-ASK Task Force on Reassessing the Inclusion of Race in Diagnosing Kidney Disease, JASN 202). The CKD-EPI equation should not be used for patients with unstable renal function and has not been validated in children and those over 70. Current interpretive data was last reviewed 2020. Blood 12/26/2024 3:36 PM ELECTRICAL MECHANIC 12/26/2024 9:35 PM ELECTRICAL MECHANIC Prem Amaro MD LAB BL OOD ORDERABLES Final Result [facility] [address] Department [place] [address] * Differential, auto (12/26/2024 3:36 PM ELECTRICAL MECHANIC) Neutrophil abs 6.25 1.50 - 6.50 K/cumm Imm gran abs 0.03 0.00 - 0.10 K/cumm [facility] CH Lymphocyte abs 2.45 0.80 - 3.30 K/cumm [facility] Monocyte abs 0.66 0.20 - 0.80 K/cumm [facility] Eosinophil abs 0.15 0.00 - 0.50 K/cumm [facility] Basophil abs 0.09 0.00 - 0.10 K/cumm [facility] Neutrophil pct 64.9 % [facility] Comment: Interpretive Data Percent cell count reference ranges are not reported, since discordance with absolute values may lead to misinterpretation of CBC data. Current Interpretive Data was last revised on 2017. Imm gran pct 0.3 % [facility] Comment: Interpretive Data Percent cell count reference ranges are not reported, since discordance with absolute values may lead to misinterpretation of CBC data. Current Interpretive Data was last revised on 2017. Lymphocyte pct 25.4 % [facility] Comment: Interpretive Data Percent cell count reference ranges are not reported, since discordance with absolute values may lead to misinterpretation of CBC data. Current Interpretive Data was last revised on 2017. Monocyte pct 6.9 % [facility] Comment: Interpretive Data Percent cell count reference ranges are not reported, since discordance with absolute values may lead to misinterpretation of CBC data. Current Interpretive Data was last revised on 2017. Eosinophil pct 1.6 % [facility] Comment: Interpretive Data Percent cell count reference ranges are not reported, since discordance with absolute values may lead to misinterpretation of CBC data. Current Interpretive Data was last revised on 2017. Basophil pct 0.9 % [facility] Comment: Interpretive Data Percent cell count reference ranges are not reported, since discordance with absolute values may lead to misinterpretation of CBC data. Current Interpretive Data was last revised on 2017. Blood 12/26/2024 3:36 PM ELECTRICAL MECHANIC 12/26/2024 9:34 PM ELECTRICAL MECHANIC Prem Amaro MD LAB BL OOD ORDERABLES Final Result [facility] [address] Department [place] [address] * (ABNORMAL) CBC with auto differential (12/26/2024 3:36 PM ELECTRICAL MECHANIC) WBC 9.63 3.80 - 9.90 K/cumm Hgb 13.9 11.9 - 15.5 g/dL [facility] Hct 42.8 35.6 - 45.5 % [facility] Plt 297 150 - 400 K/cumm [facility] MPV 11.8 9.1 - 12.3 fL [facility] RBC 4.43 3.90 - 5.20 M/cumm [facility] MCV 96.6(H) 81.3 - 96.4 fL [facility] MCH 31.4 27.1 - 33.3 pg [facility] MCHC 32.5 32.3 - 35.7 g/dL [facility] RDW CV 13.6 11.1 - 14.9 % [facility] RDW SD 48.3(H) 35.7 - 48.1 fL [facility] NRBC abs 0.00 0.00 - 0.01 K/cumm [facility] Blood 12/26/2024 3:36 PM ELECTRICAL MECHANIC 12/26/2024 9:34 PM ELECTRICAL MECHANIC Prem Amaro MD LAB BL OOD ORDERABLES Final Result [place] [address] [facility] [place] [address] * Erythrocyte sedimentation rate (12/26/2024 3:36 PM ELECTRICAL MECHANIC) Pathologist [facility] Erythrocyte sedimentation rate 17 1 - 30 mm/hr Blood 12/26/2024 3:36 PM ELECTRICAL MECHANIC 12/26/2024 9:34 PM ELECTRICAL MECHANIC Prem Amaro MD LAB BL OOD ORDERABLES Final Result Performing Organization Address [facility] [place] [address] [facility] [place] [address] * CRP (acute phase) (12/26/2024 3:36 PM ELECTRICAL MECHANIC) Pathologist [facility] CRP <3.0 <=10.0 mg/L Blood 12/26/2024 3:36 PM ELECTRICAL MECHANIC 12/26/2024 9:34 PM ELECTRICAL MECHANIC Prem Amaro MD LAB BL OOD ORDERABLES Final Result Performing Organization Address [facility] Co de Phone Number [place] [address] [facility] [place] [address] * (ABNORMAL) Comprehensive metabolic panel (12/26/2024 3:36 PM ELECTRICAL MECHANIC) Sodium 140 135 - 145 mmol/L Potassium, pl 4.4 3.3 - 4.9 mmol/L [facility] Chloride 104 97 - 110 mmol/L [facility] CO2 23 22 - 32 mmol/L [facility] Anion gap 13 2 - 15 mmol/L [facility] BUN 9 6 - 25 mg/dL [facility] Creatinine 0.60 0.60 - 1.10 mg/dL [facility] Glucose 109 70 - 199 mg/dL [facility] Comment: Interpretive Data Fasting glucose >/= 126 mg/dl is diagnostic for diabetes. Fasting is defined as no caloric intake for at least 8 hours. Fasting glucose between 100 mg/dl to 125 mg/dl is diagnostic of prediabetes. In a patient with classic symptoms of hyperglycemia or hyperglycemic crisis, a random glucose >/= 200 mg/dl is diagnostic for diabetes. In the absence of unequivocal hyperglycemia, results should be confirmed by repeat testing. The classification and Diagnosis of Diabetes Diabetes Care 2021; 46: S19-S40. Current interpretive data was last revised 2022. Calcium 9.1 8.5 - 10.3 mg/dL [facility] Bilirubin, total 0.2 0.1 - 1.2 mg/dL [facility] Protein, pl 7.4 6.5 - 8.5 g/dL [facility] Albumin 4.5 3.5 - 5.0 g/dL [facility] Alk phos 145(H) 40 - 130 Units/L [facility] ALT 27 7 - 45 Units/L [facility] AST 33 10 - 45 Units/L [facility] Blood 12/26/2024 3:36 PM ELECTRICAL MECHANIC 12/26/2024 9:34 PM ELECTRICAL MECHANIC Prem Amaro MD LAB [place] [address] [address] Department [place] [address] * Hepatitis C antibody Blood (09/30/2023 1:21 PM CDT) Hep C Ab NON-REACTI VE NON-REACT CYN [facility] Comment: HCV antibody was non-reactive. There is no laboratory evidence of HCV infection. In most cases, no further action is required. However, if recent HCV exposure is suspected, a test for HCV RNA (test code 70454) is suggested. For additional information please refer to http://education.WatrHub.Smarkets/faq/URO95w4 (This link is being provided for informational/ educational purposes only.) Blood 09/30/2023 1:21 PM CDT 09/30/2023 1:24 PM CDT Narrative [facility] - 10/05/2023 5:36 PM CDT FASTING:NO FASTING: NO us Kolby Braga NP LAB MICROBIOLOGY - GENERAL ORD ERABLES Final Result [facility] [address] [place] [address] * POCT glycosylated hemoglobin (Hb A1C) (11/05/2016 2:55 PM CDT) Hemoglobin A1C, POC 8.8 Blood specimen (specimen) Venous blood specimen / Unknown 11/05/2016 2:55 PM CDT Augusto Chacon MD POINT OF CARE TEST ORDERABLES Fi nal Result from Last 3 Months or Most Recently Relevant to Health Maintenance Insurance [facility] Care Teams Automatic Pinsetter Adjuster Relationship Specialty Start Date End Date Brandon Begum DO PCP - General Internal Medicine 11/26/22 Brandon Begum DO Internal Medicine 11/26/22 Kolby Braga NP Nurse Practitioner Nurse Practitioner 07/20/23
--- OUTSIDE RECORDS SUMMARY | 2025-01-08 15:17 | XMS_ITS | Data Portability ---
Author Organization [facility] Address [address] [place] [address] Care Team Providers Care Paper Products Inspector Name Role Phone TIM BERTRAND Primary Care Provider Assessment Encounter Date Assessment Date Assessment LastModified by Organization Details LastModified Time 12/11/2020 12/11/2020 Annual gynecological exam performed. Patient will come back in a year unless there are new symptoms. Not available 12/11/2020 18:04:00 02/18/2022 02/18/2022 Annual gynecological exam performed. Patient will come back in a year unless there are new symptoms. Not available 02/18/2022 16:21:01 03/11/2023 03/11/2023 Annual gynecological exam performed. Patient will come back in a year unless there are new symptoms. Not available 03/11/2023 17:04:59 03/16/2024 03/16/2024 Annual gynecological exam performed. Patient will come back in a year unless there are new symptoms. Not available 03/16/2024 17:00:12 Plan of Treatment Reminders Order Date Submit Date Provider Last Modified By Organization Details Last Modified Time Details Appointments None recorded. Lab None recorded. Referral None recorded. Procedures None recorded. Surgeries None recorded. Imaging None recorded. Medication Orders estradiol 1 mg tablet 2024 025 [facility] [address], [address] [facility], [place], [address], 17:18:29 estradiol 1 mg tablet [address] [facility] [address] [place], [address], 5 17:02:07 progesteron e micronized 100 mg capsule [address] [facility], [address] [place], [address], 5 17:03:43 Patient TargetsNo targets recorded. Patient InstructionsNo instructions recorded. Reason for Referral None Reported. Results Created Date Observation Date Name Description Value Unit Range Abnormal Flag Note LastModifiedBy Organization Detail LastModifiedTime 12/13/19 21 12/12/2020 IMAGE GUIDE D PAP AND HPV REGAR DLESS image guided Pap, HPV regardless of Pap result SEE RESULT S BELOW CASE REPOR T: Cytol ogy Gynec ologi souleymane Repor t Case: [id number] Autho natalie haile Provi costa: Nicholas Escudero MD Colle cted: 12/12 0852 Order ing Locat ion: [place] [facility] Recei steph: 12/13 0023 First Scree n: [place]alia [place] CT Speci men: Kirill carrollg Pap - Image d, Cervi x STATE MENT OF ADEQU ACY: Satis facto ry for evalu ation Trans forma tion zone compo nent prese nt FINAL DIAGN OSIS: Negat ilan for Intra epith elial Madhu mendoza or Vanesa phipps (NIL) . Nahid oslis d by Italia Carlisle CT on 12/19 at 12:14 PM ----- ----- ----- ----- ----- ----- ----- ----- ----- ----- ----- ----- ----- ----- ----- ----- ----- ---- HPV RESUL TS: HPV mRNA E6/E7 : No HPV mRNA Detec alfredo NOTE: This high risk HPV mRNA assay detec ts fourt een high- risk HPV types (16, 18, 31, 33, 35, 39, 45, 51, 52, 56, 58, 59, 66, 68) witho ut diffe renti ation . COMME NT: Note: This speci men was revie wed by a Cytot echno logis t and/o r Patho logis t (as indic ated in this repor t) after evalu ation using the Thinp rep Imagi ng Syste m. [facility] INFOR MATIO N: Menst rual Statu s: LMP (if appli cable ): Clini souleymane Histo ry/Pr eviou s Pap: Type of Neopl margarita (if appli cable ): Signi fican t Clini souleymane Findi ngs: Other Histo ry: Hormo leisa (if appli cable ): PAP EDUCA RUPINDER L NOTE: The Pap Test is a scree stephani test with an inher ent false negat ilan rate. Liqui d-bas e sampl ing may decre ase, but will not elimi amparo, false negat ilan resul ts. A negat ilan resul t does not precl ude the prese nce and/o r devel opmen t of disea se, since the prese nce of abnor mal cells in the sampl e depen ds on the locat ion of the lesio n and sampl ing techn ique. Zuri nued regul ar scree stephani is the best metho d of cance r preve ntion . If repor alfredo cytol ogic findi ng do not corre late with physi souleymane and/o r histo rical findi ngs, furth er inves tigat ion is recom yoselyn d, as clini bruno duenas nted. Not Available [facility] (Lab) [address], [place], [address], 12/19/2020 13:17:18 02/18/19 23 02/18/2022 IMAGE GUIDE D PAP AND HPV REGAR DLESS image guided Pap, HPV regardless of Pap result SEE RESULT S BELOW CASE REPOR T: Cytol ogy Gynec ologi souleymane Repor t Case: [id number] Autho natalie haile Provi costa: Nicholas Escudero MD Colle cted: 02/18 1746 Order ing Locat ion: [place] Patho logana Recei steph: 02/19 0256 First Scree n: Almaz Macias , [place] Speci men: Scree stephani Pap - Image d, Cervi x STATE MENT OF ADEQU ACY: Satis facto ry for evalu ation Trans forma tion zone compo nent prese nt FINAL DIAGN OSIS: Negat ilan for Intra epith elial Lesio n or Vanesa phipps (NIL) . Elect leonardgen bhardwaj will d by Almaz Macias , [place] on 2022 at 1:46 PM ----- ----- ----- ----- ----- ----- ----- ----- ----- ----- ----- ----- ----- ----- ----- ----- ----- ---- HPV RESUL TS: HPV mRNA E6/E7 : No HPV mRNA Detec alfredo NOTE: This high risk HPV mRNA assay detec ts fourt een high- risk HPV types (16, 18, 31, 33, 35, 39, 45, 51, 52, 56, 58, 59, 66, 68) witho ut diffe renti ation . COMME NT: Note: This speci men was revie wed by a Cytot echno logis t and/o r Patho logis t (as indic ated in this repor t) after evalu ation using the Thinp rep Imagi ng Syste m. CLINI [facility] INFOR MATIO N: Menst rual Statu s: LMP (if appli cable ): Clini souleymane Histo ry/Pr eviou s Pap: Type of Neopl margarita (if appli cable ): Signi fican t Clini souleymane Findi ngs: Other Histo ry: Hormo leisa (if appli cable ): PAP EDUCA RUPINDER L NOTE: The Pap Test is a scree stephani test with an inher ent false negat ilan rate. Liqui d-bas ed sampl ing may decre ase, but will not elimi amparo, false negat ilan resul ts. A negat ilan resul t does not precl ude the prese nce and/o r devel opmen t of disea se, since the prese nce of abnor mal cells in the sampl e depen ds on the locat ion of the lesio n and sampl ing techn ique. Zuri nued regul ar scree stephani is the best metho d of cance r preve ntion . If repor alfredo cytol ogic findi ng do not corre late with physi souleymane and/o r histo rical findi ngs, furth er inves tigat ion is recom yoselyn d, as clini bruno duenas nted. Not Available [facility] (Lab) [address], [place], [address], 02/20/2022 14:48:12 03/12/19 24 03/12/2023 IMAGE GUIDE D PAP AND HPV REGAR DLESS image guided Pap, HPV regardless of Pap result SEE RESULT S BELOW CASE REPOR T: Cytol ogy Gynec ologi souleymane Repor t Case: [id number] Autho natalie lazara Provi costa: Nicholas Escudero MD Colle cted: 03/12 1443 Order ing Locat ion: [place] Patho [place] Recei steph: 03/15 0732 First Scree n: Almaz Macias , [place] Speci men: Scree stephani Pap - Image d, Cervi x STATE MENT OF ADEQU ACY: Satis facto ry for evalu ation Trans forma tion zone compo nent prese nt FINAL DIAGN OSIS: Negat ilan for Intra epith elial Lesio n or Vanesa phipps (NIL) . Elect sendy bhardwaj will d by Almaz Macias , CT on 024 at 10:23 AM ----- ----- ----- ----- ----- ----- ----- ----- ----- ----- ----- ----- ----- ----- ----- ----- ----- ---- HPV RESUL TS: HPV mRNA E6/E7 : No HPV mRNA Detec alfredo NOTE: This high risk HPV mRNA assay detec ts fourt een high- risk HPV types (16, 18, 31, 33, 35, 39, 45, 51, 52, 56, 58, 59, 66, 68) witho ut diffe renti ation . COMME NT: This speci men was revie wed by a Cytot echno logis t and/o r Patho logis t (as indic ated in this repor t) after evalu ation using the Thinp rep Imagi ng Syste m. CLINI [facility] INFOR MATIO N: Menst rual Statu s: LMP (if appli cable ): Clini souleymane Histo ry/Pr eviou s Pap: Type of Neopl margarita (if appli cable ): Signi fican t Clini souleymane Findi ngs: Other Histo ry: Hormo leisa (if appli cable ): PAP EDUCA RUPINDER L NOTE: The Pap Test is a scree stephani test with an inher ent false negat ilan rate. Liqui d-bas ed sampl ing may decre ase, but will not elimi amparo, false negat ilan resul ts. A negat ilan resul t does not precl ude the prese nce and/o r devel opmen t of disea se, since the prese nce of abnor mal cells in the sampl e depen ds on the locat ion of the lesio n and sampl ing techn ique. Zuri nued regul ar scree stephani is the best metho d of cance r preve ntion . If repor alfredo cytol ogic findi ng do not corre late with physi souleymane and/o r histo rical findi ngs, furth er inves tigat ion is recom yoselyn d, as clini bruno duenas nted. Not Available [facility] (Lab) [address], [place], [address], 03/16/2023 11:26:36 03/16/19 25 03/16/2024 IMAGE GUIDE D PAP AND HPV REGAR DLESS image guided Pap, HPV regardless of Pap result SEE RESULT S BELOW CASE REPOR T: Cytol ogy Gynec ologi souleymane Repor t Case: [id number] Autho natalie haile Provi costa: Nicholas Escudero MD Colle cted: 03/16 1643 Order ing Locat ion: [place] Patho logana Davis steph: 03/17 0754 First Kirill n: Glenda Funes , [place] Speci men: Kirill styles Pap - Image d, Cervi x STATE MENT OF ADEQU ACY: Satis facto ry for evalu ation Trans forma tion zone compo nent prese nt ----- ----- ----- ----- ----- ----- ----- ----- ----- ----- ----- ----- ----- ----- ----- ----- ----- ---- FINAL DIAGN OSIS: Negat ilan for Intra epith elial Madhu mendoza or Vanesa phipps (NIL) . Elect sendy batista by BERKLEY Bailey on 2024 at 1237 LENS HARDENER ----- ----- ----- ----- ----- ----- ----- ----- ----- ----- ----- ----- ----- ----- ----- ----- ----- ---- HPV RESUL TS: HPV mRNA E6/E7 : No HPV mRNA Detec alfredo NOTE: This high risk HPV mRNA assay detec ts fourt een high- risk HPV types (16, 18, 31, 33, 35, 39, 45, 51, 52, 56, 58, 59, 66, 68) witho ut diffe renti ation . COMME NT: This speci men was revie wed by a Cytot echno logis t and/o r Patho logis t (as indic ated in this repor t) after evalu ation using the Thinp rep Imagi ng Syste m. CLINI [facility] INFOR MATIO N: Menst rual Statu s: LMP (if appli cable ): Clini souleymane Histo ry/Pr eviou s Pap: Type of Neopl margarita (if appli cable ): Signi fican t Clini souleymane Findi ngs: Other Histo ry: Hormo leisa (if appli cable ): PAP EDUCA RUPINDER L NOTE: The Pap Test is a scree stephani test with an inher ent false negat ilan rate. Liqui d-bas ed sampl ing may decre ase, but will not elimi amparo, false negat ilan resul ts. A negat ilan resul t does not precl ude the prese nce and/o r devel opmen t of disea se, since the prese nce of abnor mal cells in the sampl e depen ds on the locat ion of the lesio n and sampl ing techn ique. Zuri nued regul ar scree stephani is the best metho d of cance r preve ntion . If repor alfredo cytol ogic findi ng do not corre late with physi souleymane and/o r histo rical findi ngs, furth er inves tigat ion is recom yoselyn d, as clini bruno warra nted. Not Available [facility] (Lab) [address], [place], [address], 03/21/2024 13:41:04 12/21/19 21 12/20/2020 MAMMO , scree stephani, digit al, bilat eral No observ ation record ed. [address] [place] [address], [address], 12/24/2020 15:28:41 05/20/19 24 05/19/2023 MAMMO , scree stephani, bilat eral No observ ation record ed. [place] [id number] [facility] [address], [place], [address], 05/21/2023 14:56:35 Result Notes None recorded. Problems Name Problem SNOMED Code Status Onset Date Resolution Date Notes Provider Name and Address Organization Details Recorded Time Speciali zed medical examinat ion Completed 04/16/ 2013 12/11/2020 Gynecolo gical Examinat ion;Juarez rded Elsewher e: No Locat ion: [facility] S ource: EHR Hobber simón: N Practi ce ID: 0001 Kieran lable Time: 03:00:00 PM Parul montanez [facility] 18:16:56 Leukocyt osis [id number] Completed 201412/11/2020 LEUKOCYT OSIS NOS;Juarez rded Elsewher e: No Locat ion: [facility] S ource: EHR Hobber simón: N Practi ce ID: 0001 Kieran lable Time: 01:00:00 PM [facility]:16:39 Screenin g for malignan t neoplasm of cervix Completed 201412/11/2020 Screenin g for malignan t neoplasm s of the cervix;R ecorded Elsewher e: No Locat ion: [facility] Pract[facility] ID: 0001 Kieran lable Time: 01:00:00 PM Parul montanez [facility] 18:16:41 Overweig ht [id number] Completed 201412/11/2020 Overweig ht;Pract ice ID: 0001 Parul Kinsey [facility], [facility] 18:16:46 Urinary tract infectio us disease [id number] Completed 201412/11/2020 Urinary tract infectio n, site not specifie d;Record ed Elsewher e: No Locat ion: [facility] S ource: EHR Hobber simón: N Practi ce ID: 0001 Kieran lable Time: 01:00:00 PM Parul montanez [facility] 18:16:[address] Concept Completed 201512/11/2020 Encntr for general adult medical exam w/o abnormal findings ;Recorde d Elsewher e: No Locat ion: [facility] N Practi ce ID: 0001 Kieran lable Time: 10:30:00 AM Parul montanez [facility] 18:16:[address] Concept Completed 201712/11/2020 Encntr for oven dumper exam (general ) (routine ) w/o abn findings ;Recorde d Elsewher e: No Locat ion: [facility] N Practi ce ID: 0001 Kieran lable Time: 03:00:00 PM Parul montanez, [facility] 18:16:55 Screenin g for malignan t neoplasm of rectum Completed 201712/11/2020 Encounte r for screenin g for malignan t neoplasm of rectum;R ecorded Elsewher e: No Locat ion: [facility] N Practi ce ID: 0001 Kieran lable Time: 03:00:00 PM Parul montanez, [facility] 18:16:52 Evaluati on finding Completed 201812/11/2020 Hematuri a, unspecif ied;Prac new ID: 0001 Parul montanez, [facility] 18:16:48 Pelvic and perineal pain [id number] Completed 201812/11/2020 Pelvic and perineal pain;Rec orded Elsewher e: No Locat ion: [facility] N Practi ce ID: 0001 Kieran lable Time: 04:00:00 PM Parul montanez [facility] 18:16:50 Lesion of ovary Completed 201912/11/2020 Other ovarian cyst, right side;Pra ctice ID: 0001 Parul Cummings [facility] 18:16:44 Cyst of ovary Completed 201912/11/2020 Ovarian cyst;Rec orded Elsewher e: No Locat ion: Linseysunitha bella [facility] S ource: EHR Hobber simón: N Practi ce ID: 0001 Kieran lable Time: 03:45:00 PM Parul Kinsey [facility] 18:16:43 Problem Notes None recorded. Procedures Surgical History Date Name Laterality Status Provider Name and Address Organization Details Recorded Time 05/19/19 24 Date of Last Mammogram completed [facility] 03/16/2024 17:05:23 03/12/19 24 Date of Last Pap Smear completed [facility] 03/16/2024 17:04:51 02/08/19 00 Endometrial Ablation completed Kelli [facility] 02/18/2022 16:23:11 02/08/18 98 section completed , [facility] 12/11/2020 18:21:46 Imaging Results None recorded. Procedure Notes None recorded. Medical Equipment None Reported. Allergies Allergen ID Allergen Name Allergen Category Reaction Reaction Severity Criticality Documentation Date Start Date Code Code System Note Provider Name and Address Organization Details Recorded Time 73431 Product containin g penicilli n (product) medicatio n Not available Not available Not available 01/26/2020 68938 8001 SNOMED Parul Kinsey [facility] 1 18:15:00 41363 atorvasta tin medicatio n Not available Not available Not available 03/11/2023 18437 RxNorm Kelli Ace [facility] 4 17:05:11 31358 Product containin g 3-hydroxy -3-methyl glutaryl- coenzyme A reductase inhibitor (product) medicatio n Not available Not available Not available 03/11/2023 35613 009 SOLO Ace [facility], [facility] 4 17:15:58 Medications Name Sig Start Date Stop Date Status Note LastModified by Organization Details LastModified Time tetracycl ine 500 mg capsule TAKE 1 CAPSULE BY MOUTH EVERY 8 HOURS FOR 7 DAYS active Not Available Not Available No t Available celecoxib 200 mg capsule TAKE 1 CAPSULE BY MOUTH TWICE DAILY . DO NOT EXCEED 2 PER 24 HOURS (PATIENT CALL OFFICE IF REFILLS ARE NEEDED BEYOND THIS PRESCRIP TION) active Not Available Not Available No t Available atorvasta tin 40 mg tablet TAKE 1 TABLET BY MOUTH ONCE DAILY 03/11 completed Not Available Not Available Not Available doxycycli ne hyclate 100 mg capsule TAKE 1 CAPSULE BY MOUTH TWICE DAILY FOR 10 DAYS 03/16 completed Not Available Not Available Not Available clindamyc in HCl 300 mg capsule TAKE 1 CAPSULE BY MOUTH EVERY 8 HOURS FOR 7 DAYS 03/16 completed Not Available Not Available Not Available albuterol sulfate 2.5 mg/3 mL (0.083 %) solution for nebulizat ion USE 1 VIAL IN NEBULIZE R 4 TIMES DAILY NEEDED FOR SHORTNES S OF BREATH OR WHEEZING active Not Available Not Available No t Available azithromy magdy 250 mg tablet 12/11 completed Not Available Not Available Not Available Glucagon Emergency Kit 1 mg solution for injection 12/11 completed Not Available Not Available Not Available phenazopy ridine 200 mg tablet TAKE 1 TABLET BY MOUTH THREE TIMES DAILY 03/11 completed Not Available Not Available Not Available prednison e 5 mg tablet 03/11 completed Not Available Not Available Not Available clobetaso l 0.05 % topical cream APPLY CREAM TOPICALL Y TO AFFECTED AREA TWICE DAILY FOR 28 DAYS, TAKE A TWO WEEK BREAK, THEN TWICE A WEEK FOR UP TO 6 MONTHS FOR MAINTENA NCE. NO FACE APPLICAT ION. 03/16 completed Not Available Not Available Not Available Lantus U-100 Insulin 100 unit/mL subcutane ous solution INJECT 13 UNITS SUBCUTAN EOUSLY ONCE DAILY 03/16 completed Not Available Not Available Not Available ciproflox acin 500 mg tablet TAKE 1 TABLET BY MOUTH EVERY 12 HOURS FOR 7 DAYS 03/11 completed Not Available Not Available Not Available doxycycli ne monohydra te 100 mg tablet TAKE 1 TABLET BY MOUTH TWICE DAILY FOR 5 DAYS 02/18 completed Not Available Not Available Not Available triamcino lone acetonide 0.1 % topical cream APPLY CREAM EXTERNAL LY TO RASH TWICE DAILY UP TO 4 WEEKS, THEN TAKE A 2 WEEK BREAK ( NO FACE) ONCE RESOLVED , THEN USE TWICE WEEKLY FOR 6 MONTHS 03/16 completed Not Available Not Available Not Available lidocaine -prilocai ne 2.5 %-2.5 % topical cream 12/11 completed Not Available Not Available Not Available Synthroid 175 mcg tablet TAKE 1 TABLET DAILY active Not Available Not Available No t Available ofloxacin 0.3 % ear drops INSTILL 5 DROPS INTO THE RIGHT EAR EVERY 12 HOURS FOR 7 DAYS 03/11 completed Not Available Not Available Not Available estradiol 1 mg tablet TAKE 1 TABLET BY MOUTH ONCE DAILY active Not Available Not Available No t Available methotrex ate sodium 2.5 mg tablet TAKE 6 TABLETS BY MOUTH ONCE A WEEK active Not Available Not Available No t Available Synthroid 25 mcg tablet take 1 tablet by oral route every day 12/11 completed Prescrib ed Elsewher e: Yes Loca tion: [facility] odify By: kristen meredith DateTime : 05/21/19 13 02:31:51 PM Not Available Not Available Not Available amlodipin e 10 mg tablet TAKE 1 TABLET ONCE DAILY active Not Available Not Available No t Available simvastat in 5 mg tablet 12/11 completed Not Available Not Available Not Available tacrolimu s 0.1 % topical ointment APPLY A THIN LAYER OF OINTMENT EXTERNAL LY TWICE DAILY FOR UP TO 4 WEEKS, THEN APPLY BIWEEKLY FOR UP TO 6 MONTHS 03/16 completed Not Available Not Available Not Available polymyxin B sulfate 10,000 unit-trim ethoprim 1 mg/mL eye drops 12/11 completed Not Available Not Available Not Available levothyro xine 150 mcg tablet TAKE 1 TABLET BY MOUTH ONCE DAILY 03/11 completed Not Available Not Available Not Available gabapenti n 300 mg capsule 12/11 completed Not Available Not Available Not Available folic acid 1 mg tablet TAKE 1 TABLET BY MOUTH ONCE DAILY active Not Available Not Available No t Available azelastin e 137 mcg (0.1 %) nasal spray USE 1 SPRAY(S) IN EACH NOSTRIL EVERY 12 HOURS 03/11 completed Not Available Not Available Not Available insulin lispro (U-100) 100 unit/mL subcutane ous solution 1 UNIT FOR 25 GRAMS OF CARBOHYD RATE. INJECT SUBCUTAN EOUSLY DIRECTED . MAX DAILY DOSE 15 UNITS PER DAY 03/16 completed Not Available Not Available Not Available hydroxych loroquine 200 mg tablet TAKE 1 & 1/2 (ONE & ONE-HALF ) TABLETS BY MOUTH ONCE DAILY active Not Available Not Available No t Available methylpre dnisolone 4 mg tablets in a dose pack TAKE BY MOUTH DIRECTED ON INSIDE OF PACKAGE 03/16 completed Not Available Not Available Not Available albuterol sulfate HFA 90 mcg/actua tion aerosol inhaler INHALE 2 PUFFS BY MOUTH EVERY 4 TO 6 HOURS NEEDED FOR SHORTNES S OF BREATH OR WHEEZING active Not Available Not Available No t Available lisinopri l 40 mg tablet TAKE 1 TABLET BY MOUTH ONCE DAILY active Not Available Not Available No t Available doxycycli ne hyclate 100 mg tablet TAKE 1 TABLET BY MOUTH EVERY 12 HOURS FOR 7 DAYS 03/16 completed Not Available Not Available Not Available progester one micronize d 100 mg capsule TAKE 1 CAPSULE BY MOUTH ONCE DAILY 03/16 completed Not Available Not Available Not Available Humalog U-100 Insulin 100 unit/mL subcutane ous cartridge inject by subcutan eous route as per insulin sliding scale protocol 10/09 completed Prescrib ed Elsewher e: Yes Loca tion: [facility] odify By: edward meredith DateTime : 05/21/19 13 02:31:51 PM Not Available Not Available Not Available ezetimibe 10 mg tablet TAKE 1 TABLET BY MOUTH ONCE DAILY active Not Available Not Available No t Available rosuvasta tin 40 mg tablet TAKE 1 TABLET BY MOUTH ONCE DAILY 03/16 completed Not Available Not Available Not Available nitrofura ntoin monohydra te/macroc rystals 100 mg capsule TAKE 1 CAPSULE BY MOUTH TWICE DAILY FOR 5 DAYS 03/16 completed Not Available Not Available Not Available duloxetin e 60 mg capsule,d elayed release TAKE 1 CAPSULE BY MOUTH ONCE DAILY 03/11 completed Not Available Not Available Not Available Lantus U-100 Insulin 100 unit/mL subcutane ous cartridge inject by subcutan eous route as per insulin protocol 12/11 completed Prescrib ed Elsewher e: Yes Loca tion: Linseyjodi bella [facility] odify By: kristen meredith DateTime : 05/21/19 13 02:31:51 PM Not Available Not Available Not Available pregabali n 150 mg capsule 12/11 completed Not Available Not Available Not Available Levemir U-100 Insulin 100 unit/mL subcutane ous solution 03/11 completed Not Available Not Available Not Available varenicli ne tartrate 1 mg tablet 03/16 completed Not Available Not Available Not Available varenicli ne tartrate 0.5 mg (11)-1 mg (42) tablets in a dose pack 03/16 completed Not Available Not Available Not Available BD Ultra-Fin e Short Pen Needle 31 gauge x /16 02/18 completed Not Available Not Available Not Available Insulin Syringe 0.5 mL 29 gauge x 1/2 USE 1 FIVE TIMES DAILY 03/11 completed Not Available Not Available Not Available Chantix 0.5 mg tablet take 1 tablet by oral route 2 times every day for 3 days with a glass of water after meals 07/26 completed Prescrib ed Elsewher e: Yes Loca tion: Linseyjodi bella [facility] odify By: kristen meredith DateTime : 05/25/19 13 03:00:00 PM Not Available Not Available Not Available Apidra U-100 Insulin 100 unit/mL subcutane ous solution inject by subcutan eous route per prescrib er's instruct ions. Insulin dosing requires individu alizatio n. 12/11 completed Prescrib ed Elsewher e: Yes Loca tion: [facility] odify By: edward meredith DateTime : 10/10/19 15 01:00:00 PM Not Available Not Available Not Available hydrochlo rothiazid e 12.5 mg tablet 12/11 completed Not Available Not Available Not Available Humalog KwikPen (U-100) Insulin 100 unit/mL subcutane ous INJECT UP TO 6 UNITS SUBCUTAN EOUSLY 3 TIMES A DAY active Not Available Not Available No t Available BD Insulin Syringe Ultra-Fin e 1 mL 31 gauge x 5/16 02/18 completed Not Available Not Available Not Available Otezla 30 mg tablet active Not Available Not Available No t Available Levemir FlexTouch U-100 Insulin 100 unit/mL (3 mL) subcutane ous pen 12/11 completed Not Available Not Available Not Available Otezla Starter 10 mg (4)-20 mg (4)-30 mg(47) tablets in a dose pack TAKE DIRECTED 03/16 completed Not Available Not Available Not Available Basaglar KwikPen U-100 Insulin 100 unit/mL (3 mL) subcutane ous INJECT 10 UNITS SUBCUTAN EOUSLY DAILY active Not Available Not Available No t Available Accu-Chek Guide test strips USE 1 STRIP THREE TIMES DAILY 03/16 completed Not Available Not Available Not Available Xhance 93 mcg/actua tion breath activated aerosol SPRAY 1 SPRAY IN EACH NOSTRIL TWICE A DAY active Not Available Not Available No t Available Dexcom G6 Transmitt er device USE TO MONITOR GLUCOSE, CHANGE EVERY 90 DAYS 03/16 completed Not Available Not Available Not Available BD Insulin Syringe 0.3 mL 29 gauge x 1/2 USE WITH INSULIN INJECTIO NS UP TO FIVE TIMES DAILY 02/18 completed Not Available Not Available Not Available Omnipod Dash Pods (Gen 4) subcutane ous cartridge 12/11 completed Not Available Not Available Not Available Wixela Inhub 250 mcg-50 mcg/dose powder for inhalatio n INHALE 1 DOSE BY MOUTH TWICE DAILY 03/16 completed Not Available Not Available Not Available BD Yaneli 2nd Gen Pen Needle 32 gauge x 5/32 03/16 completed Not Available Not Available Not Available Baqsimi 3 mg/actuat ion nasal spray SPRAY THE CONTENTS OF 1 DEVICE INTRANAS ALLY ONCE; MAY REPEAT WITH OTHER DEVICE IN 15 MINUTES IF NO RESPONSE 03/11 completed Not Available Not Available Not Available hydroxych loroquine 100 mg tablet active Not Available Not Available Not Available Dexcom G7 Sensor device CHANGE EVERY 10 DAYS 03/16 completed Not Available Not Available Not Available Vitals Date Recorded Body height Body mass index (BMI) Body weight Systolic And Diastolic Provider Name and Address Organization Details Last Updated DateTime 02/18/2022 165.1 cm 25.5 kg/m2 86265.63 g 149/71 mm[Hg] Kelli [facility] 02/18/2022 16:21:15 Date Recorded Body height Body mass index (BMI) Body weight Systolic And Diastolic Provider Name and Address Organization Details Last Updated DateTime 03/11/2023 165.1 cm 25.5 kg/m2 84096.63 g 153/75 mm[Hg] Kelli [facility] 03/11/2023 17:15:34 Date Recorded Body height Body mass index (BMI) Body weight Systolic And Diastolic Provider Name and Address Organization Details Last Updated DateTime 03/16/2024 165.1 cm 23.1 kg/m2 87655.34 g 159/76 mm[Hg] Malgorzata Bishop [facility] 03/16/2024 17:00:38 Date Recorded Body height Body mass index (BMI) Body weight Provider Name and Address Organization Details Last Updated DateTime 12/11/2020 165.1 cm 25.6 kg/m2 05210.22 g Parul Kinsey [facility] 12/11/2020 18:14:11 Social History Question Answer Notes LastModified by Organizat ion Details LastModified Time Tobacco Smoking Status Current Every Day Smoker Parul Kinsey [facility], [facility] 12/11/2020 18:21:34 Do You Have An Advance Directive? No [email or web address] Information n ot available 12/11/2020 Are You Blind Or Do You Have Difficulty Seeing? No Information n ot available 12/11/2020 What Is Your Level Of Caffeine Consumption? Moderate Information not available 03/16/2024 How Much Tobacco Do You Chew? None [email or web address] Information not available 12/11/2020 In The 14 Days Before Symptom Onset, Have You Had Close Contact With A Laboratory-confirm ed COVID-19 While That Case Was Ill? No [email or web address] Information n ot available 12/11/2020 In The 14 Days Before Symptom Onset, Have You Had Close Contact With A Person Who Is Under Investigation For COVID-19 While That Person Was Ill? No [email or web address] Information not available 12/11/2020 Have You Been To An Area Known To Be High Risk For COVID-19? No [email or web address] Information not available 12/11/2020 Are You Deaf Or Do You Have Serious Difficulty Hearing? No Information not available 12/11/2020 What Type Of Diet Are You Following? DIABETIC [email or web address] Information n ot available 12/11/2020 What Is The Highest Grade Or Level Of School You Have Completed Or The Highest Degree You Have Received? [id number] [email or web address] Information not available 12/11/2020 Are There Any Guns Present In Your Home? Yes Information not available 12/11/2020 What Is Your Current Pack Years? [email or web address] s Information not available 12/11/2020 Do You Use Protection During Sex? No Information not available 12/11/2020 Do You Use Your Seat Belt Or Car Seat Routinely? Yes [email or web address] Information not available 12/11/2020 Do You Have Smoke And Carbon Monoxide Detectors In Your Home? Yes [email or web address] Information not available 12/11/2020 At What Age Did You Start Smoking Tobacco? 20 [email or web address] Information not available 12/11/2020 How Much Tobacco Do You Smoke? 2 PPW [email or web address] Information not available 12/11/2020 Do You Use Sunscreen Routinely? Yes [email or web address] Information not available 12/11/2020 Has Tobacco Cessation Counseling Been Provided? No [email or web address] Information not available 12/11/2020 How Many Years Have You Smoked Tobacco? 20 [email or web address] Information not available 12/11/2020 Have You Used IV Drugs? No [email or web address] Information not available 12/11/2020 Sex: Unknown Functional Status Question Answer Note LastModified by Organizat ion Details LastModified Time Do you use any illicit or recreational drugs? No [email or web address] Information not available 12/11/2020 Do you or have you ever used any other forms of tobacco or nicotine? No [email or web address] Information not available 12/11/2020 What is your level of alcohol consumption? None [email or web address] Information not available 12/11/2020 Are you able to walk independently without assistance or assistive devices? 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 Moderate [email or web address] Information not available 12/11/2020 Mental Status Question Answer Note LastModified by Organization D etails LastModified Time Do you feel stressed (tense, restless, nervous, or anxious, or unable to sleep at night)? [id number] Information not available 12/11/2020 Family History Relationship Description Onset Age of this Age Resolved Age Notes LastModified by Organization Details LastModified Time Father Heart disease [email or web address] Not available 2020 18:03:10 Mother Hypertensive disorder Not available 2020 18:03:15 Mother Cerebrovascu lar accident [email or web address] Not available 04/2020 18:14:19 Mother Heart disease Not available 2020 18:14:19 Notes:Cancer risk form compl ete 12/09/2020 Medical History Condition Response Diabetes Y Arthritis Y Thyroid Problems Y Hypertension Y Gynecological History Statement/Question Response Abnormal Pap N Date of Last Mammogram 05/19/2023 Date of LMP 02/09/2004 N Was last menstrual period normal N STIs/STDs N HPV Vaccine N Current Control Method Tubal Ligat ion Are cycles usually normal N Sexually Active? Y Menses Monthly N Age of first menstrual cycle 12 Date of Last Pap Smear 03/12/2023 Sexual Problems? N Desired Control Method Ablation LMP Definite N Obstetrics History GPAL:G 2 P 2 0 0 2 Type Value Full Term 2 Living 2 Total 2 Past Encounters Encounter ID Performer Location Encounter Start Date Encounter Closed Date Diagnosis/Indication Diagnosis SNOMED-CT Code Diagnosis ICD10 Code Diagnosis IMO Codes Diagnosis Note [id number] Josh Escudero MD [place] [address] [address] 12/11/2020 17:57:18 12/12/2020 16:36:08 Gynecologic examination [id number] Z01.419 This patient is here for her annual exam. A thorough history was taken. A physical exam was performed. Age appropriat e routine health screening was ordered, performed, and discussed. Recommende d testing was ordered. She was asked to follow up in one year. She will be informed of any test results. Mammogram - [ordered] Colonoscop y - [ ordered cologuard ] Bone Density - [ na ] Cholestero l - [ done ] Pap - today [id number] Josh Escudero MD [place] [address],[place] [address] 02/18/2022 16:02:11 02/18/2022 17:17:24 Gynecologic examination 25008137 Z01.419 This patient is here for her annual exam. A thorough history was taken. A physical exam was performed. Age appropriat e routine health screening was ordered, performed, and discussed. Recommende d testing was ordered. She was asked to follow up in one year. She will be informed of any test results. Mammogram - [ordered] Colonoscop y - [ ordered cologuard ] Bone Density - [ na ] Cholestero l - [ done ] Pap - today [id number] Josh Escudero MD [place] [address],[place] [address] 03/11/2023 16:52:29 03/11/2023 17:49:51 Menopausal symptom 56866324 N95.1 Gynecologi c examination 73346743 Z01.419 Z11.51 This patient is here for her annual exam. A thorough history was taken. A physical exam was performed. Age appropriat e routine health screening was ordered, performed, and discussed. Recommende d testing was ordered. She was asked to follow up in one year. She will be informed of any test results. Mammogram - [ordered] Colonoscop y - [ ordered cologuard ] Bone Density - [ na ] Cholestero l - [ done ] Pap - today [id number] Josh Escudero MD [place] [address],[place] [address] 03/16/2024 16:53:12 03/16/2024 17:19:20 Menopausal symptom 01576557 N95.1 Gynecologi c examination 64398357 Z01.419 Z11.51 This patient is here for her annual exam. A thorough history was taken. A physical exam was performed. Age appropriat e routine health screening was ordered, performed, and discussed. Recommende d testing was ordered. She was asked to follow up in one year. She will be informed of any test results. Mammogram - [ordered] Colonoscop y - [ ordered cologuard ] Bone Density - [ ordered) Cholestero l - [ done ] Pap - today Health Concerns Section Related Observation LastModified by Organization Detai ls LastModified Time None Recorded Concern Status LastModified by Organization Details LastModified Time None Recorded Advance Directives Directive N: Payers Insurance Date Sequence Insurance Name Policy Number Policy Etienne Covered Member ID Etienne Member ID Guarantor Name 03/16/2024 1 [place] [id number] 1 Lakisha Brokc [id number] Lakisha Brock 03/20/2024 1 [place] 33E Lakisha Brock [id number] Lakisha Brock Notes Date Note Type Note Provider Name and Address Organization Details Recorded Time 12/12/19 21 text/htm l Annual GYNReported by PatientHistoryFor history, patient reportsno gynecologic complaints.Genitourinary symptomsFor urinary symptoms, patient reportsno hematuriaandno incontinence. For vulva, patient reportsno genital lesion. For vagina, patient reportsnormal vaginal discharge.Breast symptomsFor breast, patient reportsno breast pain,no breast lump, andno nipple discharge.ContraceptionFor current contraception, patient reportstubal ligation.Endocrine symptomsFor sexual complaints, patient reportsno sexual complaintsandno pain during intercourse. For menopausal symptoms, patient reportsno menopausal symptoms.Psychological symptomsFor psychological symptoms, patient reportsno depression.Preventative measuresFor preventive measures, patient reportsencourage self breast examinationandencourage regular exercise. Josh Escudero MD [address], [place], [address], [place] [facility] 12/11/2020 19:17:02 02/18/19 23 text/htm l Annual GYNReported by PatientHistoryFor history, patient reportsno gynecologic complaints.Genitourinary symptomsFor menstrual cycle, patient reportsperimenopausal. For urinary symptoms, patient reportsno hematuriaandno incontinence. For vulva, patient reportsno genital lesion. For vagina, patient reportsnormal vaginal discharge.Breast symptomsFor breast, patient reportsno breast painandno breast lump.Endocrine symptomsFor menopausal symptoms, patient reportshot flashesandinsomnia due to night sweats. For sexual complaints, patient reportsno sexual complaintsandno pain during intercourse.Psychological symptomsFor psychological symptoms, patient reportsno depressionandno anxiety.Preventative measuresFor preventive measures, patient reportsencourage self breast examinationandencourage regular exercise. Josh Escudero MD [address], [place], [address], [facility] 02/18/2022 17:01:23 03/11/19 24 text/htm l Annual GYNReported by PatientHistoryFor history, patient reportsno gynecologic complaints.Genitourinary symptomsFor menstrual cycle, patient reportsnormal menses. For urinary symptoms, patient reportsno hematuriaandno incontinence. For vulva, patient reportsno genital lesion. For vagina, patient reportsnormal vaginal discharge.Breast symptomsFor breast, patient reportsno breast painandno breast lump.Endocrine symptomsFor menopausal symptoms, patient reportshot flashesandinsomnia due to night sweats. For sexual complaints, patient reportsno sexual complaintsandno pain during intercourse.Psychological symptomsFor psychological symptoms, patient reportsno depressionandno anxiety.Preventative measuresFor preventive measures, patient reportsencourage self breast examinationandencourage regular exercise. Josh Escudero MD [address], [place], [address], [facility] 03/11/2023 17:38:36 03/16/19 25 text/htm l Annual GYNReported by PatientHistoryFor history, patient reportsno gynecologic complaints.Genitourinary symptomsFor menstrual cycle, patient reportsnormal menses. For urinary symptoms, patient reportsno hematuria. For vulva, patient reportsno genital lesion. For vagina, patient reportsnormal vaginal discharge.Breast symptomsFor breast, patient reportsno breast painandno breast lump.Endocrine symptomsFor sexual complaints, patient reportsno sexual complaintsandno pain during intercourse. For menopausal symptoms, patient reportsno menopausal symptoms.Psychological symptomsFor psychological symptoms, patient reportsno depressionandno anxiety.Preventative measuresFor preventive measures, patient reportsencourage self breast examinationandencourage regular exercise. Josh Escudero MD [address], [place], [address], [facility] 03/16/2024 17:19:06 OBGyn Episode Ob Episode Information Episode Created Date Number of Fetuses Patient Bloodtype Patient rh Status Prepregnancy Weight lbs Domestic Partner Domestic Partner Phone Father Name Process Development Chemist Status 12/12/19 21 1 CLOSED Fetus Data First Name Last Name Admitted to NICU Weight (g) Sex Living Outcome Pediatric Complications Fetus ID Race Codes Race Delivery Type M [id number] Vaginal Delivery Amor Calculation Initial Amor Date Initial Exam Date Initial Exam Provider Initial Ultrasound Date Last Menstrual Period Date Ultra Sound Weeks Gestation 0 Eighteen To Twenty Week Amor Update Ultra Sound Date Fundal Height At Umbil Quickening Date Ultra Sound Latest Weeks Gestation Final Amor Confirmed By Final Amor Confirmed Date Final Amor Date Ultra Sound Latest Days Gestation 0 0 Menstrual History Last Menstrual Date Menses Monthly On Bcp Conception Prior Menses Frequency Hcg Plus Date Menarche Onset Age Delivery Information Delivery Date Delivery Type Labor Anesthesia Weeks Gestation Incision Type Labor Labor Length Hrs Delivered By Post Complications Tubal Sterilization Discharge Date Comments 5 Pre-Ecla m psia Discharge Information Feeding Method Contraceptive Method Maternal HG B and HCT Levels Ob Episode Information Episode Created Date Number of Fetuses Patient Bloodtype Patient rh Status Prepregnancy Weight lbs Domestic Partner Domestic Partner Phone Father Name Process Development Chemist Status 12/12/19 21 1 CLOSED Fetus Data First Name Last Name Admitted to NICU Weight (g) Sex Living Outcome Pediatric Complications Fetus ID Race Codes Race Delivery Type F Full Term [id number] Primary Amor Calculation Initial Amor Date Initial Exam Date Initial Exam Provider Initial Ultrasound Date Last Menstrual Period Date Ultra Sound Weeks Gestation 0 Eighteen To Twenty Week Amor Update Ultra Sound Date Fundal Height At Umbil Quickening Date Ultra Sound Latest Weeks Gestation Final Amor Confirmed By Final Amor Confirmed Date Final Amor Date Ultra Sound Latest Days Gestation 0 0 Menstrual History Last Menstrual Date Menses Monthly On Bcp Conception Prior Menses Frequency Hcg Plus Date Menarche Onset Age Delivery Information Delivery Date Delivery Type Labor Anesthesia Weeks Gestation Incision Type Labor Labor Length Hrs Delivered By Post Complications Tubal Sterilization Discharge Date Comments 8 Discharge Information Feeding Method Contraceptive Method Maternal HG B and HCT Levels
--- OUTSIDE RECORDS SUMMARY | 2025-01-08 15:17 | XMS_ITS | Encounter Summary ---
Author Organization [facility] Address [address] [place] [id number] Care Team Providers Care Program Lead Name Role Phone None, Provider Primary Care Provider Unavaila ble Encounter Details Date Type Department Care Team (Late st Contact Info) Description 07/28/2024 Prep for Procedure [facility]-Ad[facility] [place] [address] Christian Lindo MD [address] [place] [address] Social History Tobacco Use Types Packs/Day Years Used Date Smoking Tobacco: Every Day Cigarettes Smokeless Tobacco: Never Alcohol Use Standard Drinks/Week Comments Never 0 (1 standard drink = 0.6 oz pur e alcohol) Comments No Sex and Gender Information Value Date Recorded Sex Assigned at Not on file Legal Sex Female 8:08 PM CDT Gender Identity Not on file Sexual Orientation Not on file documented as of this encounter Plan of Treatment Not on file documented as of this encounter Visit Diagnoses Not on filedocumented in this encounter Care Teams Program Lead Relationship Specialty Start Date End Date None, Provider, PCP - General UNKNOWN PHYSICIAN SPECIALTY 07/31/24 documented as of this encounter
--- NOTE | 2025-01-08 16:11 | P.CONOP_ITS ---
Assessment and Plan Assessment and plan (1) Closed intertrochanteric fracture of right hip: Qualifiers: Encounter type: initial encounter Fracture alignment: displaced Q ualified Code(s): S72.141A - Displaced intertrochanteric fracture of right femur, initial encounter for closed fracture Code(s): S72.141A - Displaced intertrochanteric fracture of right femur, initial encounter for closed fracture Status: Acute Assessment and Plan: New patient evaluation for chief complaint fall on right hip. History, physical exam and radiographs reviewed with the patient. Fall today while at work for [employer]. Right hip intertrochanteric fracture. Discussed the condition, nature, etiology and course of natural history with the patient. Treatment options including surgical and nonoperative treatment were reviewed. Risks and benefits of each as well as alternatives reviewed. The patient's questions were answered. Conservative treatment ice, Pain control, mechanical DVT prophylaxis. patient desires operative treatment. Plan Discussed nonoperative and operative treatment options with the patient. Risks and benefits of each as well as alternatives were reviewed. All of the patient's questions were answered. The risks of surgery reviewed including but not limited to: Neurovascular damage, wound complication, infection, blood clot, pulmonary embolus, stroke, myocardial infarction, and anesthetic risks up to and including . Continued pain and possible dysfunction were explained. Specific risks of the procedure including later recurrence of deformity. No guarantees were offered. If hardware used, discussed risk of failure/ breakage and possible need for removal. If complications occur, the patient understands the need for further treatment, possible further surgery. Patient verbalizes understanding and wishes to proceed. PLAN: Right hip intramedullary hip screw History of Present Illness HPI Consult date: 01/09/25 Requesting physician: Ivy Zelaya MD Consult reason: fracture ( Right hip fracture) Chief complaint: Hip fracture Narrative: 54-year-old woman works for the [employer] who slipped and fell onto right hip today while working. Unable to bear weight and had right hip pain. Presented to the emergency room and found to have fracture. Admitted for further care. No prior problems with the hip. Denies any pre-existing issues. Review of Systems 2 Constitutional: Constitutional: Denies fever(s) Eyes: Eyes: Denies blurry vision ENT: Reports Normal hearing present Cardiovascular: Cardiovascular: Denies chest pain and Denies dyspnea Respiratory: Respiratory: Denies dyspnea and Denies wheezing Gastrointestinal: Gastrointestinal: Denies abdominal pain Genitourinary: Genitourinary: Denies urinary urgency Musculoskeletal: Musculoskeletal: Reports as per HPI and Denies numbness Integumentary/Breasts: Skin/Breast: Denies changing lesions and Denies sores Neurologic: Reports Normal hearing present, Denies behavioral changes, Denies confusion, Denies numbness and Denies convulsions Psychiatric: Psychiatric: Denies behavioral changes, Denies confusion and Denies hallucinations Endocrine: Endocrine: Denies heat intolerance Hematologic/Lymphatic: Hematologic/Lymphatic: Denies easy bleeding Allergic/Immunologic: Allergic/Immunologic: Denies wheezing FOR[facility]LY [facility], [facility] Past Medical History Medical History (Updated 01/09/25 @ 08:00 by Francois Abernathy MD) Closed intertrochanteric fracture of right hip Hip pain, left Depression Neuropathy 70 percent neuromuscular blockade measured by train of four peripheral nerve stimulation monitoring Menopause H/O calcium pyrophosphate deposition disease (CPPD) RLS (restless legs syndrome) Asthma HLD (hyperlipidemia) HTN (hypertension) Hypothyroidism Hirsutism Carpal tunnel syndrome Type 1 diabetes mellitus with hyperglycemia Surgical History Surgical History H/O sinus surgery H/O tubal ligation Delivery by section Family History Family History Mother , July 14 2020 Family history of osteoporosis Patient's mother is in good health Cerebral aneurysm Hypertension Depression Heart disease Sibling Hypertension Patient's sister is in good health Father Family history of cardiovascular disease Tongue cancer Asthma Heart disease Son Asthma Depression Daughter Depression Other Family history of arthritis Family history of chronic obstructive pulmonary disease Family history of congestive heart failure Social History Social History Social History: caffeine- 6 cups daily Smoking packs per day: 0.5 Smoking cigarettes per day: 10.0 Years smoked: 20 Smoking pack-years: 10.00 Smoking status: Never smoker Tobacco type: cigarettes Second hand tobacco smoke exposure: No Alcohol intake: former Substance use: never Substance use type: does not use Lack of Transportation: No Lack of Food: Never True Current Housing: I Have Housing Concerned About Future Housing: No Difficulty Paying Gas/Electric Bills: No Difficulty Paying for Meds: No Currently Unemployed: No Education: High School Diploma/GED Difficulty w/ Childcare or Family Care: No Living arrangements: with family Occupation/Education: occupation 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 verbalized by the patient): Female Spiritual care concerns: No Meds Home Medications and Allergies Home Medications ?Medication ?Instructions ?Recorded ?Confirmed ?Type aspirin 81 mg tablet,delayed 81 mg PO DAILY 01/18/19 1 03/11/24 History release (Adult Aspirin Regimen) loratadine 10 mg tablet (Claritin) 10 mg PO DAILY 02/0801/08/25 History cholecalciferol (vitamin D3) 50 50 mcg PO DAILY #90 ca ps 10/26/22 01/08/25 Rx mcg (2,000 unit) capsule hydroxychloroquine 100 mg tablet 100 mg PO BID 4 01/08/25 History folic acid 1 mg tablet 1 mg PO DAILY 01/20/2401/08 History pen needle, diabetic 32 gauge x #360 ea 05/25/2401/08 Rx amlodipine 10 mg tablet See Rx Instructions .Route 0 08/04/24 01/08/25 Rx .COMPLEX #90 tabs lisinopril 40 mg tablet See Rx Instructions .Route 0 08/04/24 01/08/25 Rx .COMPLEX #90 tabs levothyroxine 175 mcg tablet See Rx Instructions .Rout e 10/24/24 01/08/25 Rx (Synthroid) .COMPLEX #90 tabs insulin lispro 100 unit/mL See Rx Instructions .Route 11/06/24 01/08/25 Rx subcutaneous pen (Humalog KwikPen .COMPLEX #30 mL (U-100) Insulin) pravastatin 10 mg tablet See Rx Instructions .Route 0 11/06/24 01/08/25 Rx .COMPLEX #45 tabs blood-glucose sensor (Dexcom G7 #9 ea 11/14/24 5 Rx Sensor device) albuterol sulfate 90 mcg/actuation 2 puff inhalation Q 4-6H PRN 12/06/24 01/08/25 Rx aerosol inhaler shortness of breath or wheez ing #36 grams insulin glargine 100 unit/mL (3 See Rx Instructions .R oute 12/25/24 01/08/25 Rx mL) subcutaneous pen (Basaglar .COMPLEX #15 mL KwikPen U-100 Insulin) ezetimibe 10 mg tablet (Zetia) 10 mg PO DAILY #90 tabs 12/28/24 01/08/25 Rx apremilast 30 mg tablet (Otezla) 30 mg PO BID 01/08/25 01/08/25 History Allergies Allergy/AdvReac Type Severity Reaction Status Date / Time amoxicillin Allergy Severe IMMEDIATE Verified 01/08/25 21:24 ANAPHYLAXIS Penicillins Allergy Unknown Anaphylaxis Verified 01/08/25 21:24 Vital Signs Vital Signs - 24 hr 01/08/25 13:48 Temperature 97.8 F Pulse Rate 91 Respiratory Rate 16 Blood Pressure 148/54 H Pulse Oximetry 97 Oxygen Delivery Room Air Exam 2 Const: General: No confusion Orientation/consciousness: patient oriented x3 and No confusion HENMT: Head: normal to inspection, normocephalic and atraumatic Eyes: Conjunctivae: conjunctivae normal Sclera: sclerae normal Neck: Neck: supple and nontender Chest: Chest palpation & inspection: normal inspection of the chest Resp: Effort & Inspection: normal respiratory effort and no audible wheezes Cardio: Rate: regular rate Rhythm: regular rhythm GI: GI Palp: No abdominal tenderness and Yes Soft to palpation : General: Yes deferred Skin: General skin exam: no rashes or lesions noted Neuro: General: patient oriented x3 and No confusion Extrem: General: capillary refill normal Right upper extremity: normal to inspection Left upper extremity: normal to inspection Right lower extremity: hip/thigh Details: tenderness Location: of the hip Location: laterally and swelling Location: at the hip ( mild), ankle ( able to actively flex and extend ankle) Details: no tenderness and foot Details: normal capillary refill, toes with normal ROM, vascular exam Details: dorsalis pedis pulse present and normal capillary refill and motor-sensory exam Details: light-touch normal Location: in all toes; no tenderness Left lower extremity: normal to inspection, hip/thigh Details: no tenderness and no swelling, lower leg, ankle (no calf tenderness) Details: normal ROM; no tenderness and foot Details: normal capillary refill, vascular exam Details: dorsalis pedis pulse present and normal capillary refill and motor-sensory exam light-touch normal in all toes Psych: Affect: normal affect Results Labs 01/09/25 04:51 01/09/25 04:51 Labs: All other labs normal. Diagnostic results Hip x-ray: image reviewed ( Right hip intertrochanteric fracture with mild displacement and angulation.)
[2025-01-08 18:01] LABS: Hematocrit 39.4 % (37.0-47.0); Hemoglobin 13.5 g/dL (12.0-15.0); Immature Granulocyte Percent A 0.4 % (0-0.5); Lymphocytes Absolute Auto 1.38 K/mm3 (0.9-3.2); Mean Corpuscular HGB Conc 34.3 g/dl (32-36); Mean Corpuscular Hemoglobin 32.4 pg (26-34); Mean Corpuscular Volume 94.5 fl (80-100); Nucleated Red Blood Cells Absolute Auto 0.000 K/mm3 (0.0-0.012); Nucleated Red Blood Cells Perc 0.0 % (0.0-0.2); Platelet Count Result 263 k/mm3 (150-375); Red Blood Count 4.17 M/mm3 (4.2-5.4); White Blood Count 13.9 K/mm3 (4.5-10.0)
[2025-01-08 18:11] LABS: INR 1.0; Prothrombin Time 13.5 Seconds (11.1-14.7)
[2025-01-08 18:12] LABS: Partial Thromboplastin Time 27.6 Seconds (22.3-36.8)
[2025-01-08 18:13] LABS: Anion Gap 4 mmol/L (4-12); Blood Urea Nitrogen 6 mg/dL (7-17); Calcium 9.2 mg/dL (8.4-10.2); Carbon Dioxide 26 mmol/L (22-30); Chloride 106 mmol/L (98-107); Estimated CRCL calculation 95 ml/min; Estimated Glomerular Filt Rate > 60; Glucose 246 mg/dL (65-110); Potassium 4.1 mmol/L (3.4-5.0); Sodium 136 mmol/L (137-145)
[2025-01-08 18:18] VITALS: BP 164/72; PULSE 93; RESP 17; O2SAT 95
--- NOTE | 2025-01-08 18:22 | ED.LOWEXIN ---
HPI - Extremity Injury (Lower) General Chief Complaint: Extremity Injury, Lower Stated Complaint: fall, R hip pain Time Seen by Provider: 01/08/25 13:52 History of Present Illness HPI Narrative: Patient was at work when she slipped on ice and fell, landing on her hip, having a lot of pain to her right hip. Denied hitting her head or injuring anything else Related Data Home Medications ?Medication ?Instructions ?Recorded ?Confirmed ?Last Taken ?Type aspirin 81 mg tablet,delayed 81 mg PO DAILY 01/18/19 12/21/24 Unknown History release (Adult Aspirin Regimen) loratadine 10 mg tablet (Claritin) 10 mg PO DAILY 02/23/19 12/21/24 Unknown History hydroxychloroquine 100 mg tablet 100 mg PO BID 04/09/23 12/21/24 Unknown History folic acid 1 mg tablet 1 mg PO DAILY 01/20/24 12/21/24 Unknown History ixekizumab 80 mg/mL subcutaneous 80 mg subcut MONTHLY 12/12/24 12/21/24 12/15/24 History auto-injector (Taltz Autoinjector) Allergies Allergy/AdvReac Type Severity Reaction Status Date / Time amoxicillin Allergy Severe IMMEDIATE Verified 01/08/25 13:50 ANAPHYLAXIS Penicillins Allergy Unknown Anaphylaxis Verified 01/08/25 13:50 Review of Systems Review of Systems: All systems reviewed & are unremarkable except as noted in HPI and below PMFSH Past Medical History Medical History (Updated 01/08/25 @ 16:29 by Francois Abernathy MD) Closed intertrochanteric fracture of right hip Fracture of femoral neck, right, closed Hip pain, left Depression Neuropathy 70 percent neuromuscular blockade measured by train of four peripheral nerve stimulation monitoring Menopause H/O calcium pyrophosphate deposition disease (CPPD) RLS (restless legs syndrome) Asthma HLD (hyperlipidemia) HTN (hypertension) Hypothyroidism Hirsutism Carpal tunnel syndrome Type 1 diabetes mellitus with hyperglycemia Surgical History Surgical History H/O sinus surgery H/O tubal ligation Delivery by section Family History Family History Mother , July 14 2020 Family history of osteoporosis Patient's mother is in good health Cerebral aneurysm Hypertension Depression Heart disease Sibling Hypertension Patient's sister is in good health Father Family history of cardiovascular disease Tongue cancer Asthma Heart disease Son Asthma Depression Daughter Depression Other Family history of arthritis Family history of chronic obstructive pulmonary disease Family history of congestive heart failure Social History Social History Social History: caffeine- 6 cups daily Smoking packs per day: 0.5 Smoking cigarettes per day: 10.0 Years smoked: 20 Smoking pack-years: 10.00 Smoking status: Current every day smoker Tobacco type: cigarettes Alcohol intake: never Substance use: never Substance use type: does not use Lack of Transportation: No Lack of Food: Never True Current Housing: I Have Housing Concerned About Future Housing: No Difficulty Paying Gas/Electric Bills: No Difficulty Paying for Meds: No Currently Unemployed: No Education: Associate Degree Difficulty w/ Childcare or Family Care: No Living arrangements: with family Occupation/Education: occupation 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 EYES: EOMI, conjunctiva normal ENT: Hearing grossly intact LUNGS: Nonlabored breathing. HEART: [Regular rate and rhythm], normal right DP pulse ABD: [Soft], [nontender to palpation] EXT: Tenderness to palpation right hip NEURO: [Alert and oriented x 3. No gross focal sensory or strength deficits.] PSYCH: Normal affect Course Vital Signs Vital signs: Vital Signs Temperature 97.8 F 01/08/25 13:48 Pulse Rate 91 01/08/25 13:48 Respiratory Rate 16 01/08/25 13:48 Blood Pressure 148/54 H 01/08/25 13:48 Pulse Oximetry 97 01/08/25 13:48 Oxygen Delivery Room Air 01/08/25 13:48 Temperature 97.8 F 01/08/25 13:48 Pulse Rate 93 01/08/25 18:18 Respiratory Rate 17 01/08/25 18:18 Blood Pressure 164/72 H 01/08/25 18:18 Pulse Oximetry 95 01/08/25 18:18 Oxygen Delivery Room Air 01/08/25 13:48 MDM MDM Narrative Medical decision making narrative: Patient presents here after slipping on ice and falling on her hip, she is neurovascularly intact but does have tenderness to the right hip, unfortunately x-ray does show femur fracture. Discussed with ortho with plan for surgery. Differential Diagnosis Differential Diagnosis: Sprain, fracture Lab Data 01/08/25 17:40 01/08/25 17:40 Labs: Lab Results 01/08/25 Range/Units 17:40 WBC 13.9 H (4.5-10.0) K/mm3 RBC 4.17 L (4.2-5.4) M/mm3 Hgb 13.5 (12.0-15.0) g/dL Hct 39.4 (37.0-47.0) % MCV 94.5 (80-100) fl MCH 32.4 (26-34) pg MCHC 34.3 (32-36) g/dl RDW 13.3 (11.5-14.5) % Plt Count 263 (150-375) k/mm3 MPV 11.4 H (7.4-10.4) fl Immature Gran % (Auto) 0.4 (0-0.5) % Neut % (Auto) 83.3 H (45.5-73.1) % Lymph % (Auto) 9.9 L (18.3-44.2) % [place] % (Auto) 5.4 (2.6-8.5) % Eos % (Auto) 0.4 (0-4.4) % Baso % (Auto) 0.6 (0.2-1.2) % Lymph # (Auto) 1.38 (0.9-3.2) K/mm3 [place] # (Auto) 0.8 H (0.1-0.6) K/mm3 Eos # (Auto) 0.1 (0-0.3) K/mm3 Baso # (Auto) 0.1 (0.0-0.1) K/mm3 Abs Immat Gran (auto) 0.06 H (0.00-0.031) K/mm3 Absolute Neuts (auto) 11.6 H (1.3-6.7) K/mm3 Absolute Nucleated RBC 0.000 (0.0-0.012) K/mm3 Nucleated RBC % 0.0 (0.0-0.2) % PT 13.5 (11.1-14.7) Seconds INR 1.0 APTT 27.6 (22.3-36.8) Seconds Sodium 136 L (137-145) mmol/L Potassium 4.1 (3.4-5.0) mmol/L Chloride 106 (98-107) mmol/L Carbon Dioxide 26 (22-30) mmol/L Anion Gap 4 (4-12) mmol/L BUN 6 L D (7-17) mg/dL Creatinine 0.53 L (0.7-1.0) mg/dL Estim Creat Clear Calc 95 ml/min Estimated GFR > 60 (59 - ) Glucose 246 H (65-110) mg/dL Calcium 9.2 (8.4-10.2) mg/dL Blood Type Pending Antibody Screen Pending Imaging Data Radiologist's impression: ITS Impressions Hip/Pelvis X-Ray 01/08/25 15:25 Impression: Right intertrochanteric fracture Discharge Plan Discharge Clinical Impression: Closed fracture of right hip Patient Disposition: Still a Patient Condition: Stable Patient Language: Yakut Prescriptions: No Action folic acid 1 mg tablet 1 mg PO DAILY Taltz Autoinjector 80 mg/mL auto-injector 80 mg subcut MONTHLY aspirin [Adult Aspirin Regimen] 81 mg tablet,delayed release (DR/EC) 81 mg PO DAILY loratadine [Claritin] 10 mg tablet 10 mg PO DAILY hydroxychloroquine 100 mg tablet 100 mg PO BID (DME) pen needle, diabetic 32 gauge x /32 needle See Rx Instructions .ROUTE .COMPLEX Qty: 360 3RF Dose Instruction: USE WITH INSULIN 4 TIMES A DAY Rx Instructions: USE WITH INSULIN 4 TIMES A DAY cholecalciferol (vitamin D3) 50 mcg (2,000 unit) capsule 50 mcg PO DAILY Qty: 90 3RF lisinopril 40 mg tablet See Rx Instructions .ROUTE .COMPLEX Qty: 90 1RF Dose Instruction: TAKE 1 TABLET ONCE DAILY Rx Instructions: TAKE 1 TABLET ONCE DAILY amlodipine 10 mg tablet See Rx Instructions .ROUTE .COMPLEX Qty: 90 1RF Dose Instruction: Take 1 tablet by mouth once daily Rx Instructions: Take 1 tablet by mouth once daily levothyroxine [Synthroid] 175 mcg tablet See Rx Instructions .ROUTE .COMPLEX Qty: 90 1RF Dose Instruction: TAKE 1 TABLET DAILY Rx Instructions: TAKE 1 TABLET DAILY insulin lispro [Humalog KwikPen Insulin] 100 unit/mL insulin pen See Rx Instructions .ROUTE .COMPLEX Qty: 30 1RF Dose Instruction: INJECT UP TO 6 UNITS SUBCUTANEOUSLY 3 TIMES A DAY Rx Instructions: INJECT UP TO 6 UNITS SUBCUTANEOUSLY 3 TIMES A DAY pravastatin 10 mg tablet See Rx Instructions .ROUTE .COMPLEX Qty: 45 1RF Dose Instruction: TAKE 1/2 (ONE-HALF) TABLET BY MOUTH ONCE DAILY AT BEDTIME Rx Instructions: TAKE 1/2 (ONE-HALF) TABLET BY MOUTH ONCE DAILY AT BEDTIME (DME) Dexcom G7 Sensor Device See Rx Instructions .ROUTE .MEDSUPPLY Qty: 9 3RF Rx Instructions: Use to monitor glcuose albuterol sulfate 90 mcg/actuation HFA aerosol inhaler 2 puff inhalation Q4-6H PRN (Reason: shortness of breath or wheezing) Qty: 36 5RF Rx Instructions: DUE FOR APPOINTMENT IN NOVEMBER insulin glargine [Basaglar KwikPen U-100 Insulin] 100 unit/mL (3 mL) insulin pen See Rx Instructions .ROUTE .COMPLEX Qty: 15 1RF Dose Instruction: INJECT 10 UNITS (0.1ML) SUBCUTANEOUSLY DAILY Rx Instructions: INJECT 10 UNITS (0.1ML) SUBCUTANEOUSLY DAILY ezetimibe [Zetia] 10 mg tablet 10 mg PO DAILY Qty: 90 1RF Follow-up/Referrals: Brandon Begum DO [Primary Care Provider, Internal Medicine]
--- NOTE | 2025-01-08 19:14 | PM.IMHP2 ---
H&P: HPI History of Present Illness Date/Time: 01/08/25 19:14 Chief Complaint: Fall Narrative: 54-year-old female with a past medical history of type 1 diabetes, hypothyroidism, hypertension, hyperlipidemia, depression, neuropathy, psoriasis presents to the ED on 01/08/2025 after slipping on ice and falling on her right hip. She denies hitting her head or additional injuries. 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 Patient had immediate intense pain to her right hip, leaving her unable to ambulate. Pain is sharp and throbbing, rated 9/10. Patient denies previous orthopedic injuries or osteoporosis. Initial vital signs 148/54, HR 91, respirations 16, afebrile and 97% on room air. Labs with WBC 13.9, RBC 4.7. Sodium 136, BUN 6, creatinine 0.53. Glucose elevated at 246. Hip and pelvis x-ray reveals nondisplaced right intertrochanteric fracture. No dislocation. Review of Systems Review of Systems: All systems reviewed & are unremarkable except as noted in HPI and below PMFSH Past Medical History Medical History (Updated 01/09/25 @ 00:30 by Itzel Menard APRN) Closed intertrochanteric fracture of right hip Fracture of femoral neck, right, closed Hip pain, left Depression Neuropathy 70 percent neuromuscular blockade measured by train of four peripheral nerve stimulation monitoring Menopause H/O calcium pyrophosphate deposition disease (CPPD) RLS (restless legs syndrome) Asthma HLD (hyperlipidemia) HTN (hypertension) Hypothyroidism Hirsutism Carpal tunnel syndrome Type 1 diabetes mellitus with hyperglycemia Surgical History Surgical History H/O sinus surgery H/O tubal ligation Delivery by section Family History Family History Mother , July 14 2020 Family history of osteoporosis Patient's mother is in good health Cerebral aneurysm Hypertension Depression Heart disease Sibling Hypertension Patient's sister is in good health Father Family history of cardiovascular disease Tongue cancer Asthma Heart disease Son Asthma Depression Daughter Depression Other Family history of arthritis Family history of chronic obstructive pulmonary disease Family history of congestive heart failure Social History Social History Social History: caffeine- 6 cups daily Smoking packs per day: 0.5 Smoking cigarettes per day: 10.0 Years smoked: 20 Smoking pack-years: 10.00 Smoking status: Never smoker Tobacco type: cigarettes Second hand tobacco smoke exposure: No Alcohol intake: former Substance use: never Substance use type: does not use Lack of Transportation: No Lack of Food: Never True Current Housing: I Have Housing Concerned About Future Housing: No Difficulty Paying Gas/Electric Bills: No Difficulty Paying for Meds: No Currently Unemployed: No Education: High School Diploma/GED Difficulty w/ Childcare or Family Care: No Living arrangements: with family Occupation/Education: occupation 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 verbalized by the patient): Female Spiritual care concerns: No Meds Home Medications and Allergies Home Medications ?Medication ?Instructions ?Recorded ?Confirmed ?Type aspirin 81 mg tablet,delayed 81 mg PO DAILY 01/18/19 01/08/25 History release (Adult Aspirin Regimen) loratadine 10 mg tablet (Claritin) 10 mg PO DAILY 02/23/19 01/08/25 History cholecalciferol (vitamin D3) 50 50 mcg PO DAILY #90 caps 10/26/22 01/08/25 Rx mcg (2,000 unit) capsule hydroxychloroquine 100 mg tablet 100 mg PO BID 04/09/23 01/08/25 History folic acid 1 mg tablet 1 mg PO DAILY 01/20/24 01/08/25 History pen needle, diabetic 32 gauge x #360 ea 05/25/24 01/08/25 Rx amlodipine 10 mg tablet See Rx Instructions .Route 08/04/24 01/08/25 Rx .COMPLEX #90 tabs lisinopril 40 mg tablet See Rx Instructions .Route 08/04/24 01/08/25 Rx .COMPLEX #90 tabs levothyroxine 175 mcg tablet See Rx Instructions .Route 10/24/24 01/08/25 Rx (Synthroid) .COMPLEX #90 tabs insulin lispro 100 unit/mL See Rx Instructions .Route 11/06/24 01/08/25 Rx subcutaneous pen (Humalog KwikPen .COMPLEX #30 mL (U-100) Insulin) pravastatin 10 mg tablet See Rx Instructions .Route 11/06/24 01/08/25 Rx .COMPLEX #45 tabs blood-glucose sensor (Dexcom G7 #9 ea 11/14/24 01/08/25 Rx Sensor device) albuterol sulfate 90 mcg/actuation 2 puff inhalation Q4-6H PRN 12/06/24 01/08/25 Rx aerosol inhaler shortness of breath or wheezing #36 grams insulin glargine 100 unit/mL (3 See Rx Instructions .Route 12/25/24 01/08/25 Rx mL) subcutaneous pen (Basaglar .COMPLEX #15 mL KwikPen U-100 Insulin) ezetimibe 10 mg tablet (Zetia) 10 mg PO DAILY #90 tabs 12/28/24 01/08/25 Rx apremilast 30 mg tablet (Otezla) 30 mg PO BID 01/08/25 01/08/25 History Allergies Allergy/AdvReac Type Severity Reaction Status Date / Time amoxicillin Allergy Severe IMMEDIATE Verified 01/08/25 21:24 ANAPHYLAXIS Penicillins Allergy Unknown Anaphylaxis Verified 01/08/25 21:24 Vital Signs Vital Signs - 24 hr 01/08/25 13:48 01/08/25 18:18 Temperature 97.8 F Pulse Rate 91 93 Respiratory Rate 16 17 Blood Pressure 148/54 H 164/72 H Pulse Oximetry 97 95 Oxygen Delivery Room Air Exam Narrative: GENERAL: non-toxic appearing, moderate distress with pain HEAD: Normocephalic, atraumatic. EYES: PERRLA. Conjunctivae clear. NOSE: Normal no drainage. THROAT: Pharynx clear, no exudate. NECK: Trachea midline. No adenopathy, no masses. RESPIRATORY: Airway patent, respirations nonlabored. CTA. CARDIOVASCULAR: Regular rate and rhythm BREASTS: Defer GASTROINTESTINAL: Abdomen is soft and nontender. No organomegaly. Bowel sounds normal in all quadrants. GENITOURINARY: Defer MUSCULOSKELETAL: Moves all extremities with the exception of her right leg. No external injuries noted. No obvious deformity to right leg. Painful to palpation. Distal pulses intact. Sensation intact SKIN: Warm, dry, normal color. NEURO: A&O X4. Speech clear PSYCHIATRIC: Normal interaction Results Labs Labs: Short CBC 01/08/25 Range/Units 17:40 WBC 13.9 H (4.5-10.0) K/mm3 Hgb 13.5 (12.0-15.0) g/dL Hct 39.4 (37.0-47.0) % Plt Count 263 (150-375) k/mm3 [facility] 01/08/25 17:40 Sodium 136 L Potassium 4.1 Chloride 106 Carbon Dioxide 26 BUN 6 L D Creatinine 0.53 L Glucose 246 H Calcium 9.2 Quality VTE Prophylaxis VTE prophylaxis: mechanical ordered Assessment and Plan Assessment and plan (1) Closed intertrochanteric fracture of right hip: Qualifiers: Encounter type: initial encounter Fracture alignment: displaced Qualified Code(s): S72.141A - Displaced intertrochanteric fracture of right femur, initial encounter for closed fracture Code(s): S72.141A - Displaced intertrochanteric fracture of right femur, initial encounter for closed fracture Status: Acute Assessment and Plan: Patient fell and slipped on the ice while on her gut carrier route. Patient was in severe pain and unable to ambulate. Hip and pelvis x-ray reveals nondisplaced right intertrochanteric fracture. No dislocation. -orthopedic surgery consult; plan for OR on 01/09 -NPO at midnight -pain control with morphine p.r.n. -Zofran p.r.n. -PT/OT postop (2) Type 1 diabetes: Qualifiers: Diabetes mellitus complication status: with other specified complication Qualified Code(s): E10.69 - Type 1 diabetes mellitus with other specified complication Code(s): E10.9 - Type 1 diabetes mellitus without complications Status: Chronic Assessment and Plan: - hypoglycemia protocol - POC blood glucose q.6h while NPO - home medication: Glargine 10 units, lispro up to 6 t.i.d. - correct regimen ordered: Glargine 8 units daily, low-dose correction scale - may continue continuous glucose monitor (3) HLD (hyperlipidemia): Qualifiers: Hyperlipidemia type: unspecified Qualified Code(s): E78.5 - Hyperlipidemia, unspecified Code(s): E78.5 - Hyperlipidemia, unspecified Status: Chronic Assessment and Plan: Continue pravastatin, Zetia (4) Hypothyroidism: Qualifiers: Hypothyroidism type: unspecified Qualified Code(s): E03.9 - Hypothyroidism, unspecified Code(s): E03.9 - Hypothyroidism, unspecified Status: Chronic Assessment and Plan: Continue levothyroxine (5) Essential (primary) hypertension: Code(s): I10 - Essential (primary) hypertension Status: Chronic Assessment and Plan: Continue amlodipine, lisinopril Plan Diet: Regular-NPO midnight GI prophylaxis: NA DVT prophylaxis: lines/drains: PIV Fluids: NA Code status: Full Prior Studies I have reviewed the following patient records and this information was taken into consideration when formulating the assessment and plan.: previous labs, previous ER visits, previous hospitalizations and previous clinic visits Time Spent with Patient Time with patient: less than 45 minutes Hospitalist MIPS Advance Care Plan I have confirmed that the patient's Advanced Care Plan is present, code status is documented, or surrogate decision maker is listed in patient medical record.: Yes Medication Reconciliation I have utilized all available resources to obtain, update and review the patients current medications (includes all prescriptions, OTC, herbals, cannabis, and nutritional supplements).: Yes
[2025-01-08] MEDS: ONDANSETRON INJ 4 MG/2 ML VIAL IV PUSH (20:01)
[2025-01-08 20:05] VITALS: BP 151/73; PULSE 95; RESP 18; TEMP 36.6; O2SAT 96
--- NOTE | 2025-01-08 20:13 | WPCEDHO ---
ED Hand Off Checklist All vitals saved:YES IV Site documented: YES All med administrations documented: YES Triage Note Triage Note Pt to ED from work after GLF. 01/08/25 13:48 Endorses right hip pain with movement. Denies hitting head, LOC or blood thinners. Allergies amoxicillin Allergy (Severe, Verified 01/08/25 13:50) IMMEDIATE ANAPHYLAXIS PER H/P Penicillins Allergy (Unknown, Verified 01/08/25 13:50) Anaphylaxis Family History (Last Reviewed 01/08/25 @ 16:20 by Francois Abernathy MD) Mother Family history of osteoporosis Patient's mother is in good health Cerebral aneurysm Hypertension Depression Heart disease Sibling Hypertension Patient's sister is in good health Father Family history of cardiovascular disease Tongue cancer Asthma Heart disease Son Asthma Depression Daughter Depression Other Family history of arthritis Family history of chronic obstructive pulmonary disease Family history of congestive heart failure Active Medications including assessments/comments Morphine Sulfate (Morphine Sulfate (*Crx) 4 Mg/Ml Inj) 2 mg IV PUSH Q2H PRN PRN Reason: Pain Rated 7-10 Last Admin: 01/08/25 20:02 Dose: 2 mg Documented By: VIK DUFF Pain Assessment Document 01/08/25 20:02 VIK (Rec: 01/08/25 20:02 VIK [id number]) Pain Evaluation Pain Evaluation Assessment Pain Scale Pain Scale Used Numeric (1 - 10) Self Report Pain Assessment Reported Pain Level 10 Pain Score Pain Score 10: Self Report Administered/Completed Medications Discontinued Medications Morphine Sulfate (Morphine Sulfate (*Crx) 4 Mg/Ml Inj) 2 mg IV PUSH ONCE ONE Stop: 01/08/25 14:13 Last Admin: 01/08/25 14:24 Dose: 2 mg Documented By: TANYA Morphine Sulfate (Morphine Sulfate (*Crx) 2 Mg/Ml Inj) Confirm Administered Dose 2 mg .ROUTE .STK-MED ONE Stop: 01/08/25 14:15 Last Admin: 01/08/25 14:21 Dose: Not Given Documented By: DORON Non-Admin Reason: Duplicate Dose Morphine Sulfate (Morphine Sulfate (*Crx) 4 Mg/Ml Inj) 2 mg IV PUSH ONCE STA Stop: 01/08/25 17:29 Last Admin: 01/08/25 17:34 Dose: 2 mg Documented By: DORON Ondansetron HCl (Ondansetron Inj 4 Mg/2 Ml Vial) 4 mg IV PUSH ONCE STA Stop: 01/08/25 19:21 Last Admin: 01/08/25 20:01 Dose: 4 mg Documented By: VIK Interventions/Assessments IV / Saline Lock, Insert Start: 01/08/25 13:15 Freq: Status: Active Protocol: Document 01/08/25 14:05 DORON (Rec: 01/08/25 14:06 KLM [id number]) IV Assessment Peripheral Access Left Antecubital IV Catheter Access Initiated Before Arrival IV Insertion Date 01/08/25 Catheter Gauge 20 IV Insertion 1 Attempts IV Site Assessment WNL IV Care and WNL Maintenance IV / Saline Lock, Insert Start: 01/08/25 19:45 Freq: ONCE Status: Active Protocol: Document 01/08/25 20:05 VIK (Rec: 01/08/25 20:06 VIK [id number]) IV Assessment Peripheral Access Left Antecubital IV Catheter Access Continued IV Site Assessment WNL IV Care and WNL,Access Locked Maintenance Last Vital Signs Temperature 97.9 F 01/08/25 20:05 Pulse Rate 95 01/08/25 20:05 Respiratory Rate 18 01/08/25 20:05 Pulse Oximetry 96 01/08/25 20:05 Blood Pressure 151/73 H 01/08/25 20:05 Blood Pressure Mean 99 01/08/25 20:05 Blood Pressure Position Supine 01/08/25 20:05 Oxygen Delivery Room Air 01/08/25 13:48 Weight 72 kg 01/08/25 13:48 Last Result - Abnormals Only WBC 13.9 K/mm3 (4.5-10.0) H 01/08/25 17:40 RBC 4.17 M/mm3 (4.2-5.4) L 01/08/25 17:40 MPV 11.4 fl (7.4-10.4) H 01/08/25 17:40 Neut % (Auto) 83.3 % (45.5-73.1) H 01/08/25 17:40 Lymph % (Auto) 9.9 % (18.3-44.2) L 01/08/25 17:40 [place] # (Auto) 0.8 K/mm3 (0.1-0.6) H 01/08/25 17:40 Abs Immat Gran (auto) 0.06 K/mm3 (0.00-0.031) H 01/08/25 17:40 Absolute Neuts (auto) 11.6 K/mm3 (1.3-6.7) H 01/08/25 17:40 Sodium 136 mmol/L (137-145) L 01/08/25 17:40 BUN 6 mg/dL (7-17) L D 01/08/25 17:40 Creatinine 0.53 mg/dL (0.7-1.0) L 01/08/25 17:40 Glucose 246 mg/dL (65-110) H 01/08/25 17:40 Most Recent Suicide Severity Rating Suicide Severity Rating NO RISK INDICATED 01/08/25 13:48
--- NOTE | 2025-01-08 21:14 | ADMGEN ---
This patient, Lakisha Brock, was admitted to [facility] Surg Room 328-01.Arrived at 2100. Patient oriented to hospital policies and general routines including ID bracelet, bed and alarms, visiting hours, pain management, procedures, bathroom and other care routines, personal items, smoking policy, room service/diet, and visiting hours. Information on how to activate the Rapid Response Team has been discussed. Patient are encouraged to report perceived risks to care and to ask questions if they do not understand what they are told or what they should do.
[2025-01-08 22:00] VITALS: BP 156/62; PULSE 98; RESP 16; TEMP 37.1; O2SAT 93; BMI 19.5
[2025-01-09] VITALS (15 sets, daily range): BP systolic 128–169; BP diastolic 61–93; PULSE 90–105; RESP 15–18; TEMP 36.4–37.3; O2SAT 90–100
[2025-01-09] MEDS: MORPHINE SULFATE (*CRX) 4 MG/ML INJ 2 MG IV PUSH ×3 (00:56→22:52)
[2025-01-09] MEDS: LEVOTHYROXINE SODIUM 25 MCG TABLET PO (05:30)
[2025-01-09] MEDS: LEVOTHYROXINE SODIUM 150 MCG TABLET PO (05:30)
[2025-01-09 05:48] LABS: Hematocrit 40.2 % (37.0-47.0); Hemoglobin 13.3 g/dL (12.0-15.0); Immature Granulocyte Percent A 0.4 % (0-0.5); Lymphocytes Absolute Auto 1.27 K/mm3 (0.9-3.2); Mean Corpuscular HGB Conc 33.1 g/dl (32-36); Mean Corpuscular Hemoglobin 31.7 pg (26-34); Mean Corpuscular Volume 95.7 fl (80-100); Nucleated Red Blood Cells Absolute Auto 0.000 K/mm3 (0.0-0.012); Nucleated Red Blood Cells Perc 0.0 % (0.0-0.2); Platelet Count Result 256 k/mm3 (150-375); Red Blood Count 4.20 M/mm3 (4.2-5.4); White Blood Count 8.4 K/mm3 (4.5-10.0)
[2025-01-09] MEDS: INSULIN GLARGINE (*BKC) 100 UNITS/ML 8 UNITS SUB-Q (05:49)
[2025-01-09 06:12] LABS: Anion Gap 2 mmol/L (4-12); Blood Urea Nitrogen 9 mg/dL (7-17); Calcium 9.1 mg/dL (8.4-10.2); Carbon Dioxide 28 mmol/L (22-30); Chloride 106 mmol/L (98-107); Estimated CRCL calculation 67 ml/min; Estimated Glomerular Filt Rate > 60; Glucose 191 mg/dL (65-110); Potassium 4.1 mmol/L (3.4-5.0); Sodium 136 mmol/L (137-145)
--- NOTE | 2025-01-09 07:59 | ECG_ITS ---
Test Date: 2025-01-09 08:13:24 Measurements Intervals [place] Rate: 92 P: 64 SC: 159 QRS: 66 QRSD: 89 T: 61 QT: 347 QTc: 431 Interpretive Statements SINUS RHYTHM POSSIBLE LEFT ATRIAL ENLARGEMENT BORDERLINE ECG No previous ECG available for comparison Electronically Signed On 01-09-2025 08:39:37 TECHNICAL REP by Nithin Byers D.O.
--- NOTE | 2025-01-09 08:00 | WPDHPUPDATE1 ---
History and Physical Update Update Date/Time: 01/09/25 08:00 History and Physical has been reviewed, including an updated exam of the patient. There are NO changes in the patient's condition. Risks, benefits, and alternatives have been discussed and questions answered. Patient agrees to proceed with procedure.
--- NOTE | 2025-01-09 08:01 | P.PNIM_ITS ---
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 Patient was in severe pain and unable to ambulate. Hip and pelvis x-ray reveals nondisplaced right intertrochanteric fracture. No dislocation. -orthopedic surgery consult -plan for OR today -NPO -pain control with morphine p.r.n. -Zofran p.r.n. -PT/OT postop to help discharge disposition (2) Type 1 diabetes: Qualifiers: Diabetes mellitus complication status: with other specified complication Qualified Code(s): E10.69 - Type 1 diabetes mellitus with other specified complication Code(s): E10.9 - Type 1 diabetes mellitus without complications Status: Chronic Assessment and Plan: - hypoglycemia protocol - POC blood glucose q.6h while NPO - home medication: Glargine 10 units, lispro up to 6 t.i.d. - Glargine 8 units daily, low-dose correction scale - may continue continuous glucose monitor (3) HLD (hyperlipidemia): Qualifiers: Hyperlipidemia type: unspecified Qualified Code(s): E78.5 - Hyperlipidemia, unspecified Code(s): E78.5 - Hyperlipidemia, unspecified Status: Chronic Assessment and Plan: Continue pravastatin, Zetia (4) Hypothyroidism: Qualifiers: Hypothyroidism type: unspecified Qualified Code(s): E03.9 - Hypothyroidism, unspecified Code(s): E03.9 - Hypothyroidism, unspecified Status: Chronic Assessment and Plan: Continue levothyroxine (5) Essential (primary) hypertension: Code(s): I10 - Essential (primary) hypertension Status: Chronic Assessment and Plan: Continue amlodipine, lisinopril monitor blood pressure and adjust as indicated Plan Diet: NPO GI prophylaxis: NA DVT prophylaxis: lines/drains: PIV Fluids: NA Code status: Full Subjective Date/time seen: 01/09/25 08:01 Interval history: Patient seen for a follow up visit. Patient lying in bed, in no acute distress. Plan for OR today for right hip fracture. Patient is NPO. Patient will need PT/OT once post op to help determine discharge disposition. Labs reviewed, wbc count normal this AM. Review of Systems Review of Systems: All systems reviewed & are unremarkable except as noted in HPI and below Exam Narrative: GENERAL: non-toxic appearing, no distress HEAD: Normocephalic, atraumatic. EYES: PERRLA. Conjunctivae clear. NOSE: Normal no drainage NECK: Trachea midline. No adenopathy, no masses. RESPIRATORY: Airway patent, respirations nonlabored. CTA. CARDIOVASCULAR: Regular rate and rhythm BREASTS: Defer GASTROINTESTINAL: Abdomen is soft and nontender. No organomegaly. Bowel sounds normal in all quadrants. GENITOURINARY: Defer MUSCULOSKELETAL: Moves all extremities with the exception of her right leg. No external injuries noted. No obvious deformity to right leg. Painful to palpation. Distal pulses intact. Sensation intact SKIN: Warm, dry, normal color. NEURO: A&O X4. Speech clear PSYCHIATRIC: Normal interaction Objective Data Vital Signs Vital Signs: Vital Signs - 24 hr 01/08/25 13:48 01/08/25 18:18 01/08/25 20:05 Temperature 97.8 F 97.9 F Pulse Rate 91 93 95 Respiratory Rate 16 17 18 Blood Pressure 148/54 H 164/72 H 151/73 H Pulse Oximetry 97 95 96 Oxygen Delivery Room Air 01/08/25 21:23 01/08/25 22:00 Temperature 98.8 F Pulse Rate 98 Respiratory Rate 16 Blood Pressure 156/62 H Pulse Oximetry 93 Oxygen Delivery Room Air Meds/Results Medications: Active Medications Generic Name Dose Route Start Last Admin Trade Name Freq PRN Reason Stop Dose Admin Amlodipine Besylate 10 mg 01/09/25 09:00 Amlodipine Besylate 10 Mg Tablet BY MOUTH DAILY MUMTAZ Dextrose 12.5 gm 01/08/25 19:21 Dextrose 50% 25 Gm/50 Ml Syringe IV PUSH PRN PRN Hypoglycemia Protocol Ezetimibe 10 mg 01/09/25 09:00 Ezetimibe 10 Mg Tablet PO DAILY MUMTAZ Folic Acid 1 mg 01/09/25 09:00 Folic Acid 1 Mg Tablet PO DAILY MUMTAZ Glucagon 1 mg 01/08/25 19:21 Glucagon For Inj 1 Mg Vial IM PRN PRN Hypoglycemia Protocol Glucose 15 gm 01/08/25 19:21 Glucose Oral Gel 15 Gm Of Glucse In 37.5 Gm Tube PO PRN PRN Hypoglycemia Protocol Dextrose 1,000 mls @ 100 mls/hr 01/08/25 19:21 Dextrose 5% 1,000 Ml IVPB PRN PRN Hypoglycemia Protocol Insulin Aspart 2 - 5 units 01/09/25 08:00 Insulin Aspart (*Bkc) 100 Units/Ml SUB-Q TIDWM [facility] Protocol Insulin Aspart 1 - 2 units 01/09/25 21:00 Insulin Aspart (*Bkc) 100 Units/Ml SUB-Q HS [facility] Protocol Insulin Glargine 8 units 01/09/25 06:00 01/09/25 05:49 Insulin Glargine (*Bkc) 100 Units/Ml SUB-Q 8 units DAILY@0600 [facility] Administration Levothyroxine Sodium 150 mcg 01/09/25 06:30 01/09/25 05:30 Levothyroxine Sodium 150 Mcg Tablet PO 150 mcg DAILY@0630 [facility] Administration Levothyroxine Sodium 25 mcg 01/09/25 06:30 01/09/25 05:30 Levothyroxine Sodium 25 Mcg Tablet PO 25 mcg DAILY@0630 [facility] Administration Lisinopril 40 mg 01/09/25 09:00 Lisinopril 20 Mg Tablet BY MOUTH DAILY [facility] Loratadine 10 mg 01/09/25 09:00 Loratadine 10 Mg Tablet PO DAILY [facility] Morphine Sulfate 2 mg 01/08/25 18:29 01/09/25 05:25 Morphine Sulfate (*Crx) 4 Mg/Ml Inj IV PUSH 2 mg Q2H PRN Administration Pain Rated 7-10 Pravastatin Sodium 5 mg 01/09/25 09:00 Pravastatin Sodium 5 Mg Tablet PO Q12HR [facility] Vitamin D 50 mcg 01/09/25 09:00 Cholecalciferol (Vitamin D3) 25 Mcg (1,000 Units) Tablet PO DAILY [facility] Radiology Results: ITS Impressions Hip/Pelvis X-Ray 01/08/25 15:25 Impression: Right intertrochanteric fracture Labs Labs: Laboratory Results - last 24 hr 01/08/25 01/09/25 17:40 04:51 WBC 13.9 H 8.4 RBC 4.17 L 4.20 Hgb 13.5 13.3 Hct 39.4 40.2 MCV 94.5 95.7 MCH 32.4 31.7 MCHC 34.3 33.1 RDW 13.3 13.5 Plt Count 263 256 MPV 11.4 H 11.7 H Immature Gran % (Auto) 0.4 0.4 Neut % (Auto) 83.3 H 75.2 H Lymph % (Auto) 9.9 L 15.2 L [place] % (Auto) 5.4 7.6 Eos % (Auto) 0.4 0.6 Baso % (Auto) 0.6 1.0 Lymph # (Auto) 1.38 1.27 [place] # (Auto) 0.8 H 0.6 Eos # (Auto) 0.1 0.1 Baso # (Auto) 0.1 0.1 Abs Immat Gran (auto) 0.06 H 0.03 Absolute Neuts (auto) 11.6 H 6.3 Absolute Nucleated RBC 0.000 0.000 Nucleated RBC % 0.0 0.0 PT 13.5 INR 1.0 APTT 27.6 Sodium 136 L 136 L Potassium 4.1 4.1 Chloride 106 106 Carbon Dioxide 26 28 Anion Gap 4 2 L BUN 6 L D 9 Creatinine 0.53 L 0.63 L Estim Creat Clear Calc 95 67 Estimated GFR > 60 > 60 Glucose 246 H 191 H Calcium 9.2 9.1 Blood Type O Positive Antibody Screen Negative Quality VTE Prophylaxis VTE prophylaxis: mechanical ordered
[2025-01-09] MEDS: ACETAMINOPHEN 500 MG TABLET 1000 MG PO (09:15)
[2025-01-09] MEDS: KETOROLAC 15 MG/ML VIAL (*BKC) IV PUSH (09:34)
[2025-01-09] MEDS: TRANEXAMIC ACID 1,000MG/ISO100 1,000 MG/100 ML BAG 200 MG IVPB (09:34)
--- NOTE | 2025-01-09 09:57 | WPDANESEPPF ---
Anes - Initial Pre Proc Eval Procedure: Operation Date: 01/09/25 10:00 Proposed Procedures p Right Intertrochanteric Nail - Francois Abernathy MD Date/Time: 01/09/25 09:57 Surgeon: Reynaldo brock Oca, MD Pre Op Diagnosis: Hip fracture Patient Data Age: 54 Gender: F Height: 1.57 m Weight: 48.6 kg Last Vital Signs Temp 36.8 C 01/09/25 09:31 Pulse 91 01/09/25 09:31 Resp 16 01/09/25 06:00 BP 149/93 H 01/09/25 09:31 Pulse Ox 90 01/09/25 09:31 O2 Del Method Room Air 01/09/25 09:31 Allergies Allergy/AdvReac Type Severity Reaction Status Date / Time amoxicillin Allergy Severe IMMEDIATE Verified 01/08/25 21:24 ANAPHYLAXIS Penicillins Allergy Unknown Anaphylaxis Verified 01/08/25 21:24 Home Medications ?Medication ?Instructions ?Recorded ?Confirmed ?Type aspirin 81 mg tablet,delayed 81 mg PO DAILY 01/18/19 01/08/25 History release (Adult Aspirin Regimen) loratadine 10 mg tablet (Claritin) 10 mg PO DAILY 02/23/19 01/08/25 History cholecalciferol (vitamin D3) 50 50 mcg PO DAILY #90 caps 10/26/22 01/08/25 Rx mcg (2,000 unit) capsule hydroxychloroquine 100 mg tablet 100 mg PO BID 04/09/23 01/08/25 History folic acid 1 mg tablet 1 mg PO DAILY 01/20/24 01/08/25 History pen needle, diabetic 32 gauge x #360 ea 05/25/24 01/08/25 Rx amlodipine 10 mg tablet See Rx Instructions .Route 08/04/24 01/08/25 Rx .COMPLEX #90 tabs lisinopril 40 mg tablet See Rx Instructions .Route 08/04/24 01/08/25 Rx .COMPLEX #90 tabs levothyroxine 175 mcg tablet See Rx Instructions .Route 10/24/24 01/08/25 Rx (Synthroid) .COMPLEX #90 tabs insulin lispro 100 unit/mL See Rx Instructions .Route 11/06/24 01/08/25 Rx subcutaneous pen (Humalog KwikPen .COMPLEX #30 mL (U-100) Insulin) pravastatin 10 mg tablet See Rx Instructions .Route 11/06/24 01/08/25 Rx .COMPLEX #45 tabs blood-glucose sensor (Dexcom G7 #9 ea 11/14/24 01/08/25 Rx Sensor device) albuterol sulfate 90 mcg/actuation 2 puff inhalation Q4-6H PRN 12/06/24 01/08/25 Rx aerosol inhaler shortness of breath or wheezing #36 grams insulin glargine 100 unit/mL (3 See Rx Instructions .Route 12/25/24 01/08/25 Rx mL) subcutaneous pen (Basaglar .COMPLEX #15 mL KwikPen U-100 Insulin) ezetimibe 10 mg tablet (Zetia) 10 mg PO DAILY #90 tabs 12/28/24 01/08/25 Rx apremilast 30 mg tablet (Otezla) 30 mg PO BID 01/08/25 01/08/25 History Laboratory Tests 01/08/25 01/09/25 01/09/25 17:40 04:51 09:05 WBC 13.9 H K/mm3 8.4 K/mm3 (4.5-10.0) (4.5-10.0) RBC 4.17 L M/mm3 4.20 M/mm3 (4.2-5.4) (4.2-5.4) Hgb 13.5 g/dL 13.3 g/dL (12.0-15.0) (12.0-15.0) Hct 39.4 % 40.2 % (37.0-47.0) (37.0-47.0) MCV 94.5 fl 95.7 fl (80-100) (80-100) MCH 32.4 pg 31.7 pg (26-34) (26-34) MCHC 34.3 g/dl 33.1 g/dl (32-36) (32-36) RDW 13.3 % 13.5 % (11.5-14.5) (11.5-14.5) Plt Count 263 k/mm3 256 k/mm3 (150-375) (150-375) MPV 11.4 H fl 11.7 H fl (7.4-10.4) (7.4-10.4) Immature Gran % (Auto) 0.4 % 0.4 % (0-0.5) (0-0.5) Neut % (Auto) 83.3 H % 75.2 H % (45.5-73.1) (45.5-73.1) Lymph % (Auto) 9.9 L % 15.2 L % (18.3-44.2) (18.3-44.2) [place] % (Auto) 5.4 % 7.6 % (2.6-8.5) (2.6-8.5) Eos % (Auto) 0.4 % 0.6 % (0-4.4) (0-4.4) Baso % (Auto) 0.6 % 1.0 % (0.2-1.2) (0.2-1.2) Lymph # (Auto) 1.38 K/mm3 1.27 K/mm3 (0.9-3.2) (0.9-3.2) [place] # (Auto) 0.8 H K/mm3 0.6 K/mm3 (0.1-0.6) (0.1-0.6) Eos # (Auto) 0.1 K/mm3 0.1 K/mm3 (0-0.3) (0-0.3) Baso # (Auto) 0.1 K/mm3 0.1 K/mm3 (0.0-0.1) (0.0-0.1) Abs Immat Gran (auto) 0.06 H K/mm3 0.03 K/mm3 (0.00-0.031) (0.00-0.031) Absolute Neuts (auto) 11.6 H K/mm3 6.3 K/mm3 (1.3-6.7) (1.3-6.7) Absolute Nucleated RBC 0.000 K/mm3 0.000 K/mm3 (0.0-0.012) (0.0-0.012) Nucleated RBC % 0.0 % 0.0 % (0.0-0.2) (0.0-0.2) PT 13.5 Seconds (11.1-14.7) INR 1.0 APTT 27.6 Seconds (22.3-36.8) Sodium 136 L mmol/L 136 L mmol/L (137-145) (137-145) Potassium 4.1 mmol/L 4.1 mmol/L (3.4-5.0) (3.4-5.0) Chloride 106 mmol/L 106 mmol/L (98-107) (98-107) Carbon Dioxide 26 mmol/L 28 mmol/L (22-30) (22-30) Anion Gap 4 mmol/L 2 L mmol/L (4-12) (4-12) BUN 6 L D mg/dL 9 mg/dL (7-17) (7-17) Creatinine 0.53 L mg/dL 0.63 L mg/dL (0.7-1.0) (0.7-1.0) Estim Creat Clear Calc 95 ml/min 67 ml/min Estimated GFR > 60 > 60 (59 - ) (59 - ) Glucose 246 H mg/dL 191 H mg/dL (65-110) (65-110) POC Capillary Glucose 178 H mg/dl (65-105) Calcium 9.2 mg/dL 9.1 mg/dL (8.4-10.2) (8.4-10.2) Blood Type O Positive Antibody Screen Negative Patient hx anesthesia problems: none Family hx anesthesia problems: none Results Review: All pre-operative results and documents have been reviewed as part of the pre-operative evaluation. [facility] Past Medical History Medical History Closed intertrochanteric fracture of right hip Hip pain, left Depression Neuropathy 70 percent neuromuscular blockade measured by train of four peripheral nerve stimulation monitoring Menopause H/O calcium pyrophosphate deposition disease (CPPD) RLS (restless legs syndrome) Asthma HLD (hyperlipidemia) HTN (hypertension) Hypothyroidism Hirsutism Carpal tunnel syndrome Type 1 diabetes mellitus with hyperglycemia Surgical History Surgical History H/O sinus surgery H/O tubal ligation Delivery by section Family History Family History Mother , July 14 2020 Family history of osteoporosis Patient's mother is in good health Cerebral aneurysm Hypertension Depression Heart disease Sibling Hypertension Patient's sister is in good health Father Family history of cardiovascular disease Tongue cancer Asthma Heart disease Son Asthma Depression Daughter Depression Other Family history of arthritis Family history of chronic obstructive pulmonary disease Family history of congestive heart failure Social History Social History Social History: caffeine- 6 cups daily Smoking packs per day: 0.5 Smoking cigarettes per day: 10.0 Years smoked: 20 Smoking pack-years: 10.00 Smoking status: Never smoker Tobacco type: cigarettes Second hand tobacco smoke exposure: No Alcohol intake: former Substance use: never Substance use type: does not use Lack of Transportation: No Lack of Food: Never True Current Housing: I Have Housing Concerned About Future Housing: No Difficulty Paying Gas/Electric Bills: No Difficulty Paying for Meds: No Currently Unemployed: No Education: High School Diploma/GED Difficulty w/ Childcare or Family Care: No Living arrangements: with family Occupation/Education: occupation 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 Informed Consent: The patient's anesthetic plan and its attendant risks and benefits were discussed with the patient/family/POA. Questions were solicited and answers provided to the satisfaction of the patient/family/POA.
[2025-01-09] MEDS: LACTATED RINGERS 1,000 ML 30 ML IV CONT (10:11)
[2025-01-09] MEDS: ceFAZolin 2 GM in SODIUM CHLORIDE 0.9% IV 50 ML 100 ML IVPB ×2 (10:15→17:00)
[2025-01-09] MEDS: BUPIVACAINE/EPINEPHRINE 0.5% 30 ML VIAL INFILTRATE (10:31)
--- NOTE | 2025-01-09 11:25 | W.PM.PROC2 ---
Procedure Note - Detailed Date of Procedure 01/09/25 Pre-op Diagnosis Right Hip intertrochanteric fracture Post-op Diagnosis Same Procedure Performed Intramedullary hip screw right intertrochanteric fracture Surgeon Francois Abernathy MD [employer] Certified Internetwork Expert 1st assist Anesthesia General Indications 54 old woman who fell and sustained a right hip intertrochanteric fracture. Presents for operative fixation. Description of Procedure After informed consent the operative extremity was marked in the preoperative holding area. Patient received intravenous antibiotics. The patient was taken to the operative room, placed in the supine position, general anesthesia induced by the anesthesia team, and was placed on a fracture table with longitudinal traction applied to the right leg. The hip fracture was reduced to near anatomic position and verified with image intensification. A time-out was performed confirming the patient, site of the surgery and plan. The right lower extremity was prepped and draped sterilely from the knee to the iliac crest region using a ChloraPrep skin solution. Incision was made just proximal to greater trochanter down to the subcutaneous tissues. Hemostasis controlled with electrocautery. Blunt dissection through the fascia to the tip of the greater trochanter. A starter awl was placed at the tip of the greater trochanter into the medullary canal of the femur. This was checked with image intensification and was in good position. Intramedullary guide jaci positioned. A one-step hand reaming done proximally. Intramedullary canal was reamed with a 12 millimeter flexible reamer. Neck angle selected off of preoperative radiographs temp plating. 120 degree 11mm X 20cm Nail opened on the back table and assembled. This was then inserted over the guide jaci to the correct depth. Guide jaci removed. Lag screw was then placed with a stab incision over the lateral femur using a 10 blade knife. Blunt dissection down to the lateral side of the bone. Soft tissue protectors placed. Guide pin placed in the center center position of the femoral head and measured. 85 millimeter x 10.5 millimeter lag screw placed to correct depth and verified with image intensification. Traction released from the leg and compression of the fracture performed with the external compression device. Proximal locking performed. Distal locking of the nail then performed. Stab incision made lateral distal thigh. Blunt dissection down lateral side of the femur. Soft tissue protector placed. Femur drilled from lateral to medial through the distal nail. Distal femur measured and the appropriate size screw placed. 5 x 36 mm. Image intensification confirmed the placement through the locking hole. Final image intensification confirmed reduction of the fracture and placement of the hardware. Wounds then thoroughly irrigated with antibiotic solution. Fascia repaired with 0 Vicryl interrupted suture. Subcutaneous tissue repaired with 00 Vicryl interrupted suture and skin repaired with 3-0 Monocryl running subcuticular stitch. Sterile dressings applied. Patient then awoke from anesthesia, extubated, taken to recovery room stable condition. All sponge, needle and instrument counts correct at the end the case. Implants Arthrex intramedullary hip screw 1.1 by 20 cm, 120 degree, 85 mm lag screw, 36 mm distal locking screw Estimated Blood Loss 50 Tourniquet Time Total Tourniquet Time: 0 Urine Output 400 Drains No Packing No Pathology None sent Complications None Condition Stable Disposition PACU [facility] Billing Surgery - Charge Forward: Surgery Billing ([id number])
[2025-01-09] MEDS: fentaNYL CITRATE INJ (*CRX) 100 MCG/2 ML VIAL 25 MCG IV PUSH (11:51)
--- NOTE | 2025-01-09 12:04 | SUR.PHASEI ---
1200 - dr. Carrasquillo aware of accucheck of 245. no orders received at this time
[2025-01-09] MEDS: CHOLECALCIFEROL (VITAMIN D3) 25 MCG (1,000 UNITS) TABLET 50 MCG PO (12:56)
[2025-01-09] MEDS: EZETIMIBE 10 MG TABLET PO (12:56)
[2025-01-09] MEDS: FOLIC ACID 1 MG TABLET PO (12:56)
[2025-01-09] MEDS: PRAVASTATIN SODIUM 5 MG TABLET PO ×2 (12:56→20:08)
[2025-01-09] MEDS: LORATADINE 10 MG TABLET PO (12:57)
[2025-01-09] MEDS: INSULIN ASPART (*BKC) 100 UNITS/ML SUB-Q ×2 (12:57→17:00)
[2025-01-09] MEDS: SODIUM CHLORIDE 0.9% IV 1,000 ML 125 ML IV CONT ×2 (12:57→20:08)
[2025-01-09] MEDS: HYDROcodone/acetaminophen (*CRX) 7.5-325 MG TABLET 1 TAB PO ×2 (14:41→20:04)
[2025-01-09] MEDS: ONDANSETRON INJ 4 MG/2 ML VIAL IV PUSH (14:54)
[2025-01-09] MEDS: SENNA/DOCUSATE SODIUM TABLET 2 TAB PO (16:59)
[2025-01-09] MEDS: HYDROXYCHLOROQUINE SULFATE 100 MG TABLET PO (17:02)
[2025-01-09] MEDS: FAMOTIDINE 20 MG TABLET PO (20:08)
[2025-01-10] MEDS: HYDROcodone/acetaminophen (*CRX) 7.5-325 MG TABLET 1 TAB PO ×3 (01:07→13:59)
[2025-01-10] MEDS: ceFAZolin 2 GM in SODIUM CHLORIDE 0.9% IV 50 ML 100 ML IVPB ×2 (01:16→09:18)
[2025-01-10] MEDS: IBUPROFEN IV 800 MG/200 ML 800 MG/200 ML BAG 400 MG IVPB (02:03)
[2025-01-10 02:11] VITALS: BP 149/68; PULSE 95; RESP 17; TEMP 36.7; O2SAT 93
[2025-01-10] MEDS: INSULIN GLARGINE (*BKC) 100 UNITS/ML 8 UNITS SUB-Q (06:02)
[2025-01-10 06:04] VITALS: BP 127/68; PULSE 91; RESP 16; TEMP 36.3; O2SAT 93
[2025-01-10] MEDS: LEVOTHYROXINE SODIUM 25 MCG TABLET PO (06:05)
[2025-01-10] MEDS: LEVOTHYROXINE SODIUM 150 MCG TABLET PO (06:05)
[2025-01-10 06:17] LABS: Hematocrit 35.2 % (37.0-47.0); Hemoglobin 11.6 g/dL (12.0-15.0); Immature Granulocyte Percent A 0.3 % (0-0.5); Lymphocytes Absolute Auto 1.26 K/mm3 (0.9-3.2); Mean Corpuscular HGB Conc 33.0 g/dl (32-36); Mean Corpuscular Hemoglobin 31.5 pg (26-34); Mean Corpuscular Volume 95.7 fl (80-100); Nucleated Red Blood Cells Absolute Auto 0.000 K/mm3 (0.0-0.012); Nucleated Red Blood Cells Perc 0.0 % (0.0-0.2); Platelet Count Result 189 k/mm3 (150-375); Red Blood Count 3.68 M/mm3 (4.2-5.4); White Blood Count 9.8 K/mm3 (4.5-10.0)
[2025-01-10 06:44] LABS: Anion Gap 1 mmol/L (4-12); Blood Urea Nitrogen 7 mg/dL (7-17); Calcium 8.2 mg/dL (8.4-10.2); Carbon Dioxide 28 mmol/L (22-30); Chloride 107 mmol/L (98-107); Estimated CRCL calculation 69 ml/min; Estimated Glomerular Filt Rate > 60; Glucose 149 mg/dL (65-110); Potassium 3.7 mmol/L (3.4-5.0); Sodium 136 mmol/L (137-145)
--- NOTE | 2025-01-10 08:07 | PM.PNORT ---
Progress Note: A&P Assessment and Plan (1) Closed intertrochanteric fracture of right hip: Qualifiers: Encounter type: subsequent encounter Fracture alignment: displaced Fracture healing: with routine healing Qualified Code(s): S72.141D - Displaced intertrochanteric fracture of right femur, subsequent encounter for closed fracture with routine healing Code(s): S72.141A - Displaced intertrochanteric fracture of right femur, initial encounter for closed fracture Status: Acute Assessment and Plan: postop day 1 right hip intramedullary hip screw. Patient awake and alert. Tolerating diet. Pain improved this morning. PT/OT with weight bear as tolerated. Walker for ambulation. Pain control. Arixtra for DVT prophylaxis patient would like to ultimately go home with home health. Discharge home when stable. Subjective Subjective Date/Time Seen: 01/10/25 08:07 Post Op day: 1 Principal diagnosis: Right hip intertrochanteric fracture Interval history: Patient resting comfortably. Awake and alert. Less confused today. Oriented to person, place and time. Complains of minimal pain right hip. Exam Const: General: comfortable; No acute distress Resp: Effort & Inspection: normal respiratory effort and no audible wheezes Extrem: Right lower extremity: hip/thigh ( incision clean dry and intact. Dressing in place. Muscle soft.), lower leg ( Negative Homans sign), ankle Details: normal ROM ( dorsiflexion and plantar flexion intact) and foot Details: vascular exam Details: dorsalis pedis pulse present and normal capillary refill, tendon exam Details: active flexion normal and active extension normal and motor-sensory exam Details: light-touch normal Location: in all toes; no edema Left lower extremity: normal to inspection, lower leg ( Negative Homans sign), ankle Details: normal ROM and foot Details: vascular exam Details: dorsalis pedis pulse present and normal capillary refill and motor-sensory exam light-touch normal in all toes; no edema Objective Data Vital Signs Vital Signs: Vital Signs - 24 hr 01/09/25 09:31 01/09/25 11:22 01/09/25 11:30 Temperature 98.2 F 97.8 F Pulse Rate 91 92 96 Respiratory Rate 15 16 Blood Pressure 149/93 H 132/63 153/70 H Pulse Oximetry 90 100 100 Oxygen Delivery Room Air Simple Face Mask Simple Face Mask Oxygen Flow Rate 8 8 01/09/25 11:45 01/09/25 12:00 01/09/25 12:15 Temperature Pulse Rate 99 100 100 Respiratory Rate 16 18 Blood Pressure 159/72 H 140/71 129/66 Pulse Oximetry 100 95 95 Oxygen Delivery Simple Face Mask Nasal Cannula Nasal Cannula Oxygen Flow Rate 8 2 2 01/09/25 12:28 01/09/25 12:45 01/09/25 13:00 Temperature 99.1 F 98.8 F Pulse Rate 100 105 H 102 H Respiratory Rate 18 16 16 Blood Pressure 145/68 H 150/69 H 140/70 Pulse Oximetry 94 90 90 Oxygen Delivery Nasal Cannula Oxygen Flow Rate 2 01/09/25 13:16 01/09/25 14:16 01/09/25 14:35 Temperature 99.0 F 98.1 F Pulse Rate 100 99 Respiratory Rate 16 16 Blood Pressure 137/64 128/61 Pulse Oximetry 95 94 Oxygen Delivery Room Air Oxygen Flow Rate 01/09/25 14:54 01/09/25 18:16 01/09/25 20:15 Temperature 98.9 F 97.6 F Pulse Rate 100 96 Respiratory Rate 16 18 Blood Pressure 132/68 151/72 H Pulse Oximetry 97 93 Oxygen Delivery Room Air Oxygen Flow Rate 01/09/25 22:16 01/10/25 02:11 01/10/25 06:04 Temperature 98.2 F 98.0 F 97.4 F L Pulse Rate 90 95 91 Respiratory Rate 17 17 16 Blood Pressure 148/68 H 149/68 H 127/68 Pulse Oximetry 94 93 93 Oxygen Delivery Oxygen Flow Rate Intake/Output Intake/Output: Intake & Output 01/07/25 01/08/25 01/09/25 01/10/25 23:59 23:59 23:59 23:59 Intake Total 2867.9 350 Output Total 2180 1800 Balance 687.9 -1450 Meds/Results Medications: Active Medications Generic Name Dose Route Start Last Admin Trade Name Freq PRN Reason Stop Dose Admin Acetaminophen 500 mg 01/09/25 12:31 Acetaminophen 500 Mg Tablet PO Q6H PRN Pain Rated 1-3 or fever Hydrocodone Bitart/Acetaminophen 1 tab 01/09/25 12:31 01/10/25 01:07 Hydrocodone/Acetaminophen (*Crx) 7.5-325 Mg Tablet PO 1 tab Q4H PRN Administration Pain Rated 4-6 Al Hydrox/Mg Hydrox/Simethicone 30 ml 01/09/25 12:31 Mag Hydrox/Al Hydrox/Simeth 30 Ml Udc PO Q6H PRN Indigestion Amlodipine Besylate 10 mg 01/09/25 09:00 01/09/25 08:03 Amlodipine Besylate 10 Mg Tablet BY MOUTH 10 mg DAILY MUMTAZ Administration Dextrose 12.5 gm 01/08/25 19:21 Dextrose 50% 25 Gm/50 Ml Syringe IV PUSH PRN PRN Hypoglycemia Protocol Diazepam 5 mg 01/09/25 12:31 Diazepam (*Crx) 5 Mg Tablet PO Q8H PRN Muscle Spasm Ezetimibe 10 mg 01/09/25 09:00 01/09/25 12:56 Ezetimibe 10 Mg Tablet PO 10 mg DAILY MUMTAZ Administration Famotidine 20 mg 01/09/25 21:00 01/09/25 20:08 Famotidine 20 Mg Tablet PO 20 mg Q12HR MUMTAZ Administration Folic Acid 1 mg 01/09/25 09:00 01/09/25 12:56 Folic Acid 1 Mg Tablet PO 1 mg DAILY MUMTAZ Administration Fondaparinux 2.5 mg 01/10/25 09:00 Fondaparinux Sodium 2.5 Mg/0.5 Ml Syringe SUB-Q DAILY MUMTAZ Glucagon 1 mg 01/08/25 19:21 Glucagon For Inj 1 Mg Vial IM PRN PRN Hypoglycemia Protocol Glucose 15 gm 01/08/25 19:21 Glucose Oral Gel 15 Gm Of Glucse In 37.5 Gm Tube PO PRN PRN Hypoglycemia Protocol Hydroxychloroquine Sulfate 100 mg 01/09/25 17:00 01/09/25 17:02 Hydroxychloroquine Sulfate 100 Mg Tablet PO 100 mg BID MUMTAZ Administration Dextrose 1,000 mls @ 100 mls/hr 01/08/25 19:21 Dextrose 5% 1,000 Ml IVPB PRN PRN Hypoglycemia Protocol Cefazolin Sodium 2 gm/ Sodium 50 mls @ 100 mls/hr 01/09/25 17:00 01/10/25 01:16 Chloride IVPB 01/10/25 09:29 100 mls/hr Q8H UMMTAZ Administration Sodium Chloride 1,000 mls @ 125 mls/hr 01/09/25 12:31 01/10/25 06:06 Normal Saline Iv IV CONT Not Given .Q8H MUMTAZ Ibuprofen 800 mg in 200 mls @ 400 mls/hr 01/09/25 12:31 01/10/25 02:33 Caldolor 800 Mg/200 Ml IVPB Infused Q6H PRN Infusion Breakthrough Pain Rated 1-3 or NPO Insulin Aspart 2 - 5 units 01/09/25 08:00 01/09/25 17:00 Insulin Aspart (*Bkc) 100 Units/Ml SUB-Q 3 units TIDWM [facility] [place] Administration Protocol Insulin Aspart 1 - 2 units 01/09/25 21:00 01/09/25 20:17 Insulin Aspart (*Bkc) 100 Units/Ml SUB-Q Not Given HS [facility] Protocol Insulin Glargine 8 units 01/09/25 06:00 01/10/25 06:02 Insulin Glargine (*Bkc) 100 Units/Ml SUB-Q 8 units DAILY@0600 [facility] Administration Levothyroxine Sodium 150 mcg 01/09/25 06:30 01/10/25 06:05 Levothyroxine Sodium 150 Mcg Tablet PO 150 mcg DAILY@0630 MUMTAZ Administration Levothyroxine Sodium 25 mcg 01/09/25 06:30 01/10/25 06:05 Levothyroxine Sodium 25 Mcg Tablet PO 25 mcg DAILY@0630 [facility] [place] Administration Lisinopril 40 mg 01/09/25 09:00 01/09/25 12:57 Lisinopril 20 Mg Tablet BY MOUTH 40 mg DAILY [facility] Administration Loratadine 10 mg 01/09/25 09:00 01/09/25 12:57 Loratadine 10 Mg Tablet PO 10 mg DAILY [facility] [place] Administration Morphine Sulfate 2 mg 01/08/25 18:29 01/09/25 22:52 Morphine Sulfate (*Crx) 4 Mg/Ml Inj IV PUSH 2 mg Q2H PRN Administration Pain Rated 7-10 Naloxone HCl 0.1 mg 01/09/25 12:31 Naloxone Hcl 0.4 Mg/Ml Vial IV PUSH Q2M PRN Opiate Reversal Ondansetron HCl 4 mg 01/09/25 12:31 01/09/25 14:54 Ondansetron Inj 4 Mg/2 Ml Vial IV PUSH 4 mg Q4H PRN Administration Nausea And Vomiting Polyethylene Glycol 17 gm 01/10/25 09:00 Polyethylene Glycol 3350 17 Gm Powd.Pack PO QAM [facility] Pravastatin Sodium 5 mg 01/09/25 09:00 01/09/25 20:08 Pravastatin Sodium 5 Mg Tablet PO 5 mg Q12HR MUMTAZ Administration Senna/Docusate Sodium 2 tab 01/09/25 17:00 01/09/25 16:59 Senna/Docusate Sodium Tablet PO 2 tab BID MUMTAZ Administration Vitamin D 50 mcg 01/09/25 09:00 01/09/25 12:56 Cholecalciferol (Vitamin D3) 25 Mcg (1,000 Units) Tablet PO 50 mcg DAILY MUMTAZ Administration Radiology Results: ITS Impressions Hip/Pelvis X-Ray 01/08/25 15:25 Impression: Right intertrochanteric fracture Intraoperative X-Ray 01/09/25 11:57 IMPRESSION: 1. Near-anatomic alignment post internal fixation of an intertrochanteric fracture of the proximal right femur. See procedure note for further detail.. Labs Labs: Laboratory Results - last 24 hr 01/09/25 01/09/25 01/09/25 09:05 11:46 16:33 WBC RBC Hgb Hct MCV MCH MCHC RDW Plt Count MPV Immature Gran % (Auto) Neut % (Auto) Lymph % (Auto) [place] % (Auto) Eos % (Auto) Baso % (Auto) Lymph # (Auto) [place] # (Auto) Eos # (Auto) Baso # (Auto) Abs Immat Gran (auto) Absolute Neuts (auto) Absolute Nucleated RBC Nucleated RBC % Sodium Potassium Chloride Carbon Dioxide Anion Gap BUN Creatinine Estim Creat Clear Calc Estimated GFR Glucose POC Capillary Glucose 178 H 245 H 255 H Calcium 01/09/25 01/10/25 01/10/25 20:10 05:56 06:01 WBC 9.8 RBC 3.68 L Hgb 11.6 L Hct 35.2 L MCV 95.7 MCH 31.5 MCHC 33.0 RDW 13.5 Plt Count 189 MPV 11.8 H Immature Gran % (Auto) 0.3 Neut % (Auto) 78.0 H Lymph % (Auto) 12.9 L [place] % (Auto) 6.6 Eos % (Auto) 1.1 Baso % (Auto) 1.1 Lymph # (Auto) 1.26 [place] # (Auto) 0.6 Eos # (Auto) 0.1 Baso # (Auto) 0.1 Abs Immat Gran (auto) 0.03 Absolute Neuts (auto) 7.6 H Absolute Nucleated RBC 0.000 Nucleated RBC % 0.0 Sodium 136 L Potassium 3.7 Chloride 107 Carbon Dioxide 28 Anion Gap 1 L BUN 7 Creatinine 0.61 L Estim Creat Clear Calc 69 Estimated GFR > 60 Glucose 149 H POC Capillary Glucose 182 H 164 H Calcium 8.2 L 01/10/25 07:32 WBC RBC Hgb Hct MCV MCH MCHC RDW Plt Count MPV Immature Gran % (Auto) Neut % (Auto) Lymph % (Auto) [place] % (Auto) Eos % (Auto) Baso % (Auto) Lymph # (Auto) [place] # (Auto) Eos # (Auto) Baso # (Auto) Abs Immat Gran (auto) Absolute Neuts (auto) Absolute Nucleated RBC Nucleated RBC % Sodium Potassium Chloride Carbon Dioxide Anion Gap BUN Creatinine Estim Creat Clear Calc Estimated GFR Glucose POC Capillary Glucose 137 H Calcium
[2025-01-10] MEDS: FAMOTIDINE 20 MG TABLET PO (09:19)
[2025-01-10] MEDS: PRAVASTATIN SODIUM 5 MG TABLET PO (09:19)
[2025-01-10] MEDS: HYDROXYCHLOROQUINE SULFATE 100 MG TABLET PO (09:19)
[2025-01-10] MEDS: FOLIC ACID 1 MG TABLET PO (09:19)
[2025-01-10] MEDS: SENNA/DOCUSATE SODIUM TABLET 2 TAB PO (09:19)
[2025-01-10] MEDS: LORATADINE 10 MG TABLET PO (09:19)
[2025-01-10] MEDS: FONDAPARINUX SODIUM 2.5 MG/0.5 ML SYRINGE SUB-Q (09:20)
[2025-01-10] MEDS: EZETIMIBE 10 MG TABLET PO (09:20)
[2025-01-10] MEDS: CHOLECALCIFEROL (VITAMIN D3) 25 MCG (1,000 UNITS) TABLET 50 MCG PO (09:20)
[2025-01-10] MEDS: ONDANSETRON INJ 4 MG/2 ML VIAL IV PUSH (09:49)
--- NOTE | 2025-01-10 14:17 | P.DS_ITS ---
DS: Admitting Diagnosis Discharge Date 01/10/2025 Admitting Diagnosis Closed intertrochanteric fracture of right hip: DS: Discharge Diagnosis Discharge Diagnosis (1) Closed intertrochanteric fracture of right hip: Qualifiers: Encounter type: subsequent encounter Fracture alignment: displaced Fra cture healing: with routine healing Qualified Code(s): S72.141D - Displaced intertrochanteric fracture of right femur, subsequent encounter for closed fracture with routine healing Code(s): S72.141A - Displaced intertrochanteric fracture of right femur, initial encounter for closed fracture Status: Acute (2) Type 1 diabetes: Qualifiers: Diabetes mellitus complication status: with other specified complication Qualified Code(s): E10.69 - Type 1 diabetes mellitus with other specified complication Code(s): E10.9 - Type 1 diabetes mellitus without complications Status: Chronic (3) HLD (hyperlipidemia): Qualifiers: Hyperlipidemia type: unspecified Qualified Code(s): E78.5 - Hyperlipidemia, unspecified Code(s): E78.5 - Hyperlipidemia, unspecified Status: Chronic (4) Hypothyroidism: Qualifiers: Hypothyroidism type: unspecified Qualified Code(s): E03.9 - Hypothyroidism, unspecified Code(s): E03.9 - Hypothyroidism, unspecified Status: Chronic (5) Essential (primary) hypertension: Code(s): I10 - Essential (primary) hypertension Status: Chronic DS: Summary Hospital Course Reason for hospitalization: Closed intertrochanteric fracture of right hip Hospital Course: Admission: 54-year-old female with a past medical history of type 1 diabetes, hypothyroidis m, hypertension, hyperlipidemia, depression, neuropathy, psoriasis presents to the ED on 01/08/2025 after slipping on ice and falling on her right hip. She denies hitting her head or additional injuries. 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 Patient had immediate intense pain to her right hip, leaving her unable to ambulate. Pain is sharp and throbbing, rated 9/10. Patient denies previous orthopedic injuries or osteoporosis. In the ED: Initial vital signs 148/54, HR 91, respirations 16, afebrile and 97% on room air. Labs with WBC 13.9, RBC 4.7. Sodium 136, BUN 6, creatinine 0.53. Glucose elevated at 246. Hip and pelvis x-ray reveals nondisplaced right intertrochanteric fracture. No dislocation. Hospital Course: Patient was admitted to the medical unit with consult to orthopedics and underwent a Intramedullary hip screw right intertrochanteric fracture procedure. Patient tolerated procedure well and was seen by PT/OT with weight bearing as tolerated status. Patient did well with PT/OT and pain was controlled. Patient was discharged to home with home health for continued PT/OT and pain management with follow-up to Dr Abernathy in 3 weeks. Patient was instructed to de-escalate pain medication as tolerated and to continue her bowel regiment while using narcotics. Patient was advised she would be prescribed oral Eliquis 2.5 BID for 30 days for DVT prophylaxis. Patient seen prior to discharge with no complaints, labs reviewed samll drop in Hgb but expected post surgery and vitals stable. Status at Discharge Functional status at discharge: uses cane/walker Overall status at discharge: patient is progressing back to baseline Time Spent with Patient Time attestation: Total time spent providing and/or coordinating discharge services: Exam Narrative: GENERAL: non-toxic appearing, no distress HEAD: Normocephalic, atraumatic. RESPIRATORY: Airway patent, respirations nonlabored. CARDIOVASCULAR: Regular rate and rhythm GASTROINTESTINAL: Abdomen is soft and nontender. Bowel sounds normal in all quadrants. MUSCULOSKELETAL: Moves all extremities post-op . Pain with movement. Distal pulses intact. Sensation intact SKIN: Warm, dry, normal color. NEURO: A&O X4. Speech clear PSYCHIATRIC: Normal interaction DS: Data Data Completed and Pending Labs on day of discharge: Labs from last 24 hours 01/10/25 01/10/25 01/10/25 11:58 07:32 06:01 WBC RBC Hgb Hct MCV MCH MCHC RDW Plt Count MPV Immature Gran % (Auto) Neut % (Auto) Lymph % (Auto) [place] % (Auto) Eos % (Auto) Baso % (Auto) Lymph # (Auto) [place] # (Auto) Eos # (Auto) Baso # (Auto) Abs Immat Gran (auto) Absolute Neuts (auto) Absolute Nucleated RBC Nucleated RBC % Sodium Potassium Chloride Carbon Dioxide Anion Gap BUN Creatinine Estim Creat Clear Calc Estimated GFR Glucose POC Capillary Glucose 178 H 137 H 164 H Calcium Vitamin D 25-Hydroxy 01/10/25 01/09/25 01/09/25 05:56 20:10 16:33 WBC 9.8 RBC 3.68 L Hgb 11.6 L Hct 35.2 L MCV 95.7 MCH 31.5 MCHC 33.0 RDW 13.5 Plt Count 189 MPV 11.8 H Immature Gran % (Auto) 0.3 Neut % (Auto) 78.0 H Lymph % (Auto) 12.9 L [place] % (Auto) 6.6 Eos % (Auto) 1.1 Baso % (Auto) 1.1 Lymph # (Auto) 1.26 [place] # (Auto) 0.6 Eos # (Auto) 0.1 Baso # (Auto) 0.1 Abs Immat Gran (auto) 0.03 Absolute Neuts (auto) 7.6 H Absolute Nucleated RBC 0.000 Nucleated RBC % 0.0 Sodium 136 L Potassium 3.7 Chloride 107 Carbon Dioxide 28 Anion Gap 1 L BUN 7 Creatinine 0.61 L Estim Creat Clear Calc 69 Estimated GFR > 60 Glucose 149 H POC Capillary Glucose 182 H 255 H Calcium 8.2 L Vitamin D 25-Hydroxy 42.6 Imaging Attestation: I personally reviewed and interpreted this imaging study as follows: Radiologist's impression: Radiology Results: ITS Impressions Hip/Pelvis X-Ray 01/08/25 15:25 Impression: Right intertrochanteric fracture Discharge Plan Discharge Attending physician on discharge: Omari Bush Consulting providers: Francois Abernathy; Ivanna Camarillo Discharging Clinician: Ivanna Camarillo Anticipated Discharge Date/Time: 01/10/25 13:59 Patient Disposition: Home with Home Health Service Activity: as tolerated and other - see discharge instructions Discharge Instructions: 1). Per Care Coordination, patient to discharge with [facility] ([phone]) for PT/OT and long-term services. Agency will call to arrange the initial visit. 2). Right Hip intertrochanteric fracture * Activity and weight bearing as tolerated use walker with ambulation * Fall precaution at home recommend removing tripping hazards such as rugs * I have prescribed oral pain medication take as indicated and can de-escalate to Tylenol * Monitor for signs of infection such as foul drainage from site, worsening redness, fever, chills etc.. * I have also prescribed Eliquis which is a blood thinner for blood clot prevention following surgery will take mg BID for 30 days * Follow-up in Dr. Abernathy office in weeks * Elevate extremity when at rest * May use Ice pack to site How can you care for yourself at home? ? Keep track of any new symptoms or changes in your symptoms. ? Rest until you feel better. ? Be safe with medicines. Take your medicines exactly as prescribed. Call your doctor if you think you are having a problem with your medicine. ? Do not drive after taking a prescription pain medicine. ? Ensure to follow-up with primary care physician as indicated and provide updated medication list provided to you at discharge. When should you call for help? Call 911 anytime you think you may need emergency care. For example, call if: ? You passed out (lost consciousness). Call your doctor now or seek immediate medical care if: ? You have new symptoms like fever, difficulty breathing, Chest pain, vomiting, or rash. ? You have new or different pain. ? You are confused and are having trouble thinking clearly. ? Your symptoms are getting worse. Watch closely for changes in your health, and be sure to contact your doctor if: ? You do not get better as expected. Patient Instructions: Antibiotic Form, Apixaban (By mouth), ORIF of Hip Fracture (DC) Patient Language: Bhutanese Stand Alone Forms: General Discharge Information Follow-up/Referrals: Francois Abernathy MD [Physician, Orthopedics] - 3 Weeks Discharge Medications: New polyethylene glycol 3350 [Miralax] 17 gram Powder In Packet 17 g PO QAM Qty: 30 0RF sennosides-docusate sodium [Senokot-S] 8.6-50 mg Tablet 2 tab PO BID Qty: 60 0RF acetaminophen 500 mg Tablet 500 mg PO Q6H PRN (Reason: Pain Rated 1-3 or fever) Qty: 60 0RF hydrocodone-acetaminophen 7.5-325 mg Tablet 1 tablet PO Q6H PRN (Reason: Pain Rated 4-6) Qty: 30 0RF diazepam 5 mg Tablet 5 mg PO Q8H PRN (Reason: Muscle Spasm) Qty: 10 0RF Eliquis 2.5 mg tablet 2.5 mg PO BID Qty: 60 0RF Continued folic acid 1 mg tablet 1 mg PO DAILY loratadine [Claritin] 10 mg tablet 10 mg PO DAILY hydroxychloroquine 100 mg tablet 100 mg PO BID (DME) pen needle, diabetic 32 gauge x 5/32 needle See Rx Instructions .ROUTE .COMPLEX Qty: 360 3RF Dose Instruction: USE WITH INSULIN 4 TIMES A DAY Rx Instructions: USE WITH INSULIN 4 TIMES A DAY Otezla 30 mg tablet 30 mg PO BID cholecalciferol (vitamin D3) 50 mcg (2,000 unit) capsule 50 mcg PO DAILY Qty: 90 3RF lisinopril 40 mg tablet See Rx Instructions .ROUTE .COMPLEX Qty: 90 1RF Dose Instruction: TAKE 1 TABLET ONCE DAILY Rx Instructions: TAKE 1 TABLET ONCE DAILY amlodipine 10 mg tablet See Rx Instructions .ROUTE .COMPLEX Qty: 90 1RF Dose Instruction: Take 1 tablet by mouth once daily Rx Instructions: Take 1 tablet by mouth once daily levothyroxine [Synthroid] 175 mcg tablet See Rx Instructions .ROUTE .COMPLEX Qty: 90 1RF Dose Instruction: TAKE 1 TABLET DAILY Rx Instructions: TAKE 1 TABLET DAILY insulin lispro [Humalog KwikPen Insulin] 100 unit/mL insulin pen See Rx Instructions .ROUTE .COMPLEX Qty: 30 1RF Dose Instruction: INJECT UP TO 6 UNITS SUBCUTANEOUSLY 3 TIMES A DAY Rx Instructions: INJECT UP TO 6 UNITS SUBCUTANEOUSLY 3 TIMES A DAY pravastatin 10 mg tablet See Rx Instructions .ROUTE .COMPLEX Qty: 45 1RF Dose Instruction: TAKE 1/2 (ONE-HALF) TABLET BY MOUTH ONCE DAILY AT BEDTIME Patient Comments: patient stated that she takes 5mg in the morning, and 5mg in the evening. Rx Instructions: TAKE 1/2 (ONE-HALF) TABLET BY MOUTH ONCE DAILY AT BEDTIME (DME) Dexcom G7 Sensor Device See Rx Instructions .ROUTE .MEDSUPPLY Qty: 9 3RF Rx Instructions: Use to monitor glcuose albuterol sulfate 90 mcg/actuation HFA aerosol inhaler 2 puff inhalation Q4-6H PRN (Reason: shortness of breath or wheezing) Qty: 36 5RF Rx Instructions: DUE FOR APPOINTMENT IN NOVEMBER insulin glargine [Basaglar KwikPen U-100 Insulin] 100 unit/mL (3 mL) insulin pen See Rx Instructions .ROUTE .COMPLEX Qty: 15 1RF Dose Instruction: INJECT 10 UNITS (0.1ML) SUBCUTANEOUSLY DAILY Rx Instructions: INJECT 10 UNITS (0.1ML) SUBCUTANEOUSLY DAILY ezetimibe [Zetia] 10 mg tablet 10 mg PO DAILY Qty: 90 1RF Held aspirin [Adult Aspirin Regimen] 81 mg tablet,delayed release (DR/EC) 81 mg PO DAILY Hold Instructions: Resume on 02/10/25. Hold until Eliquis is completed Date of admission: 01/09/25 09:16 Primary Care Provider: Brandon Begum Admitting Provider: Reynaldo Bullard Oca Attending physician on admission: Reynaldo Bullard Oca Condition: Stable Quality VTE Prophylaxis VTE prophylaxis: mechanical ordered and pharmacologic ordered -Patient's previous records reviewed on admission -ER notes reviewed in detail on admission -discussed all findings and current treatment plan with patient/Family/POA -Consultations reviewed for recommendations -Patient's disposition for safe discharge discussed with counter caser -radiology imaging, EKG and test results I have personally reviewed and interpreted unless otherwise specified Dictation performed by [employer] direct speech recognition software, therefore dental assistant medical assistant variants and typographical errors may occur. Hospitalist MIPS Heart Failure (Exclusion) Patient has history of Heart Transplant or Left Ventricular Assistive Device?: No IF YES, STOP HERE Heart Failure (Qualifier) Patient has current or prior documentation of LVEF less than or equal to 40%, or mod/servere depressed LVSF?: No IF NO, STOP HERE
--- NOTE | 2025-01-10 14:32 | WPDANESPN ---
Anes - Prog Note Post-Op Date/Time: 01/10/25 14:32 Cardiovascular status: normal Respiratory status: normal Airway patency: baseline Mental status: baseline Post-Op hydration status: normal Vital Signs: Last Vital Signs Temp 97.4 F L 01/10/25 06:04 Pulse 91 01/10/25 06:04 Resp 16 01/10/25 06:04 BP 127/68 01/10/25 06:04 Pulse Ox 93 01/10/25 06:04 O2 Del Method Room Air 01/10/25 08:00 O2 Flow Rate 2 01/09/25 12:28 Pain Score (VAS): 0/10 I/O: Intake & Output 01/09/25 01/10/25 01/10/25 23:59 07:59 15:59 Intake Total 1537.9 350 240 Output Total 480 1800 Balance 1057.9 -1450 240 Laboratory Tests 01/10/25 05:56 01/10/25 05:56 01/09/25 01/09/25 01/10/25 16:33 20:10 05:56 WBC 9.8 RBC 3.68 L Hgb 11.6 L Hct 35.2 L MCV 95.7 MCH 31.5 MCHC 33.0 RDW 13.5 Plt Count 189 MPV 11.8 H Immature Gran % (Auto) 0.3 Neut % (Auto) 78.0 H Lymph % (Auto) 12.9 L [place] % (Auto) 6.6 Eos % (Auto) 1.1 Baso % (Auto) 1.1 Lymph # (Auto) 1.26 [place] # (Auto) 0.6 Eos # (Auto) 0.1 Baso # (Auto) 0.1 Abs Immat Gran (auto) 0.03 Absolute Neuts (auto) 7.6 H Absolute Nucleated RBC 0.000 Nucleated RBC % 0.0 Sodium 136 L Potassium 3.7 Chloride 107 Carbon Dioxide 28 Anion Gap 1 L BUN 7 Creatinine 0.61 L Estim Creat Clear Calc 69 Estimated GFR > 60 Glucose 149 H POC Capillary Glucose 255 H 182 H Calcium 8.2 L Vitamin D 25-Hydroxy 42.6 01/10/25 01/10/25 01/10/25 06:01 07:32 11:58 WBC RBC Hgb Hct MCV MCH MCHC RDW Plt Count MPV Immature Gran % (Auto) Neut % (Auto) Lymph % (Auto) [place] % (Auto) Eos % (Auto) Baso % (Auto) Lymph # (Auto) [place] # (Auto) Eos # (Auto) Baso # (Auto) Abs Immat Gran (auto) Absolute Neuts (auto) Absolute Nucleated RBC Nucleated RBC % Sodium Potassium Chloride Carbon Dioxide Anion Gap BUN Creatinine Estim Creat Clear Calc Estimated GFR Glucose POC Capillary Glucose 164 H 137 H 178 H Calcium Vitamin D 25-Hydroxy Post-procedural complaints: none Patient Feedback: Patient satisfied with anesthetic care.
== END 2025-01-10 16:23 | disposition home health service (06) | DRG 482 ==
LOC: ANHED 15:52 → ANH3MEDSUR 20:06
PROVIDERS: Nurse Practitioner Adult Health; Orthopaedic Surgery; Admitting Provider Student in an Organized Health Care Education/Training Program; Emergency Provider Emergency Medicine; PCP Internal Medicine; Visit Provider Nurse Practitioner Family
PROC: 0QS636Z Reposition Right Upper Femur with Intramedullary Internal Fixation Device, Percutaneous Approach (ICD-10-PCS; CPT 27245; principal; 2025-01-09 10:00)
DX: S72.144A Nondisplaced intertrochanteric fracture of right femur, initial encounter for closed fracture (principal); W00.9XXA Unspecified fall due to ice and snow, initial encounter; E10.65 Type 1 diabetes mellitus with hyperglycemia; E03.9 Hypothyroidism, unspecified; E78.5 Hyperlipidemia, unspecified; F32.A Depression, unspecified; F17.210 Nicotine dependence, cigarettes, uncomplicated; G25.81 Restless legs syndrome; I10 Essential (primary) hypertension; L40.9 Psoriasis, unspecified; Z88.0 Allergy status to penicillin; Z79.82 Long term (current) use of aspirin; Z79.01 Long term (current) use of anticoagulants; Z79.4 Long term (current) use of insulin
CPT/HCPCS: 36415; 73502; 80048; 82306; 82948; 85025; 85610; 85730; 86850; 86900; 86901; 93005; 96374; 96375; 96376; 97110; 97116; 97161; 97166; 97530; 97535; 99199; 99285; J0690; A9270; C1713; G0378; J1652; J1741; J1815; J1885; J2003; J2250; J2270; J2405; J2704; J3010; J3290; J7030; J7120